=== PATIENT | female | born 1965 | race Caucasian/White ===

== ENCOUNTER 2019-06-07 14:44 | Inpatient (IN) | payer OTHER ==
[2019-06-07] MEDS ORDERED: SODIUM CHLORIDE 0.9% 500 ML INFUS.BAG IV ONE (15:06)
[2019-06-07] MEDS ORDERED: ONDANSETRON 4 MG/2 ML VIAL IVPB ONE (15:06)
[2019-06-07] MEDS ORDERED: ACETAMINOPHEN 500 MG TABLET (FP) PO ONE (15:07)
--- NOTE | 2019-06-07 15:07 | PDOC ---
Rapid Medical Evaluation Time Seen by Provider: 06/07/19 15:04 Medical Evaluation: 06/07/19 15:05 HPI: nausea and vomiting x 3 days PE: no gross deficits Orders: Labs, fluids, zofran Discharge Disposition - Diagnosis Nausea and vomiting - Referrals - Patient Instructions - Post Discharge Activity
[2019-06-07 15:09] VITALS: BMI 42.0
--- NOTE | 2019-06-07 16:15 | PDOC ---
History of Present Illness - General Chief Complaint: Nausea/Vomiting Stated Complaint: VOMITING/ABD PAIN Time Seen by Provider: 06/07/19 15:04 History Source: Patient Exam Limitations: No Limitations - History of Present Illness Initial Comments: 06/07/19 16:10 53 yo female no sig pmh presents to the ED with 3 days of F/C, bilious vomiting and right sided abdominal pain. Of note, pt has had 3 months of increased urinary frequency and increased thirst. Denies recent travel, sick contacts, CP , SOB, back pain, changes in bowel habits. Pt does not have PCP. Past History - Past Medical History Allergies/Adverse Reactions: Allergies Allergy/AdvReac Type Severity Reaction Status Date / Time No Known Allergies Allergy Verified 06/07/19 15:05 Home Medications: Ambulatory Orders NK [No Known Home Medication] 06/07/19 COPD: No - Suicide/Smoking/Psychosocial Hx Smoking History: Never smoked Review of Systems - Review of Systems Constitutional: Yes: See HPI HEENTM: Yes: See HPI Respiratory: Yes: See HPI Cardiac (ROS): Yes: See HPI ABD/GI: Yes: See HPI : Yes: See HPI Musculoskeletal: Yes: See HPI Integumentary: Yes: See HPI Neurological: Yes: See HPI *Physical Exam - Vital Signs Last Vital Signs Temp Pulse Resp BP Pulse Ox 101.5 F H 126 H 18 139/81 99 06/07/19 15:08 06/07/19 15:08 06/07/19 15:08 06/07/19 15:08 06/07/19 15:08 - Physical Exam General Appearance: Yes: Nourished, Appropriately Dressed. No: Apparent Distress HEENT: positive: EOMI Neck: positive: Supple. negative: Carotid bruit Respiratory/Chest: positive: Lungs Clear, Normal Breath Sounds. negative: Accessory Muscle Use, Crackles, Rales, Rhonchi, Wheezing Cardiovascular: positive: Regular Rhythm, Tachycardia. negative: Edema, JVD, Murmur Vascular Pulses: Dorsalis-Pedis (R): 4+, Doralis-Pedis (L): 4+ Gastrointestinal/Abdominal: positive: Flat, Soft. negative: Distended, Guarding , Rebound, Tenderness Musculoskeletal: positive: CVA Tenderness Extremity: positive: Normal Capillary Refill, Normal Inspection Integumentary: positive: Normal Color, Dry, Warm Neurologic: positive: Fully Oriented, Alert, Normal Mood/Affect, Normal Response ED Treatment Course - LABORATORY CBC & Chemistry Diagram: 06/09/19 09:50 06/09/19 09:50 Medical Decision Making - Medical Decision Making 06/07/19 21:42 53 yo female no sig pmh presents to the ED with 3 days of F/C, bilious vomiting and right sided abdominal pain. Of note, pt has had 3 months of increased urinary frequency and increased thirst. Denies recent travel, sick contacts, CP , SOB, back pain, changes in bowel habits. Pt does not have PCP. vitals show elevated temp and tachy sepsis work up ordered Pt has R flank pain Labs show elevated WBC, hyponatremia, elevated Cr (KEDAR vs chronic?) elevated BS in the 500s and UA positive for blood and WBCs RUQ US neg Ab/pel CT with PO contrast ED read shows dilated right kidney likely representing pyelo when taking into account labs and UA with R flank pain after 2L NS BS in the 400s Pt resting comfortably, ambulates without difficulty labs show improvement in HR and temp normal Case discussed with [employer] REPAIRER Katheryn, agrees to have pt admitted for pyelo and new onset DM *DC/Admit/Observation/Transfer Diagnosis at time of Disposition: Nausea and vomiting, Pyelonephritis - Discharge Dispostion Condition at time of disposition: Stable Decision to Admit order: Yes - Referrals - Patient Instructions - Post Discharge Activity
[2019-06-07] MEDS ORDERED: ONDANSETRON 4 MG/2 ML VIAL ONE (16:27)
[2019-06-07] MEDS ORDERED: ACETAMINOPHEN 1000 MG/100 ML VIAL (NON FORMULARY) IVPB ONE (16:30)
[2019-06-07] MEDS ORDERED: ACETAMINOPHEN INJECTION 100 ML IVPB ONE (16:43)
[2019-06-07 17:01] LABS: BASO % 0.4 % (0-2.0); HEMOGLOBIN 12.6 GM/dL (10.7-15.3); LYMPH % 5.3 % (8-40); MCH 28.2 pg (25.7-33.7); MCHC 32.4 g/dl (32.0-36.0); MEAN CELL VOLUME 86.8 fl (80-96); MEAN PLT VOLUME 9.5 fl (7.5-11.1); MONO % 6.2 % (3.8-10.2); NEUT % 88.1 % (42.8-82.8); PLATELET COUNT 187 K/MM3 (134-434); RBC 4.49 M/mm3 (3.60-5.2); RDW 13.4 % (11.6-15.6); WHITE BLOOD COUNT 25.4 K/mm3 (4.0-10.0)
[2019-06-07 17:36] LABS: ALBUMIN 2.8 g/dl (3.4-5.0); BILIRUBIN,TOTAL 0.9 mg/dL (0.2-1); BLOOD UREA NITROGEN 22.2 mg/dL (7-18); CALCIUM 8.9 mg/dL (8.5-10.1); CREATININE 1.8 mg/dL (0.55-1.3); POTASSIUM 4.3 mmol/L (3.5-5.1); TOT PROT 7.2 g/dl (6.4-8.2)
[2019-06-07] MEDS ORDERED: SODIUM CHLORIDE 1,000 ML IV STA ×2 (18:08)
[2019-06-07 18:25] LABS: PH,URINE 5.5 (5.0-8.0); URINE APPEARANCE CLEAR; URINE BILIRUBIN NEGATIVE (NEGATIVE); URINE COLOR YELLOW; URINE GLUCOSE (UA) 3+ (NEGATIVE); URINE KETONE 1+ (NEGATIVE); URINE LEUK ESTERASE TRACE (NEGATIVE); URINE NITRITE NEGATIVE (NEGATIVE); URINE PROTEIN 1+ (NEGATIVE); URINE UROBILINOGEN 0.2 mg/dL (0.2-1.0)
--- NOTE | 2019-06-07 18:38 | PDOC ---
Documentation entered by Lazaro High SCRIBE, acting as scribe for Eric Lama MD. Eric Lama MD: This documentation has been prepared by the Anila guadalupe Elijah, SCRIBE, under my direction and personally reviewed by me in its entirety. I confirm that the documentation accurately reflects all work, treatment, procedures, and medical decision making performed by me. Attending Attestation - Resident Resident Name: Luis F Looney - ED Attending Attestation I have performed the following: I have examined & evaluated the patient, The case was reviewed & discussed with the resident, I agree w/resident's findings & plan, Exceptions are as noted - HPI HPI: 06/07/19 16:26 Patient is a 53 year old female with no reported significant past medical history who presents to the ED with 3 days of fever, belly pain, nausea, and green bilious vomit. In addition, patient notes Urinary frequency for x1 month associated with urinary incontinence. Pt endorses polydipsia as well. Denies flank pain. Allergies: NKA - Physicial Exam PE: 06/07/19 16:26 GENERAL: Awake, alert, and fully oriented, in no acute distress. HEAD: No signs of trauma EYES: PERRLA, EOMI, sclera anicteric, conjunctiva clear ENT: Auricles normal inspection, hearing grossly normal, nares patent, oropharynx clear without exudates. Moist mucosa NECK: Nontender, no stepoffs, Normal ROM, supple, no lymphadenopathy, JVD, or masses LUNGS: Breath sounds equal, clear to auscultation bilaterally. No wheezes, and no crackles HEART: Regular rate and rhythm, normal S1 and S2, no murmurs, rubs or gallops ABDOMEN: + RUQ TTP, normoactive bowel sounds. No guarding, no rebound. No masses EXTREMITIES: Normal range of motion, no edema. No clubbing or cyanosis. No cords, erythema, or tenderness NEUROLOGICAL: Cranial nerves II through XII intact. 5/5 strength and sensation in all extremities, Normal speech, normal gait, normal cerebellar function SKIN: Warm, Dry, normal turgor, no rashes or lesions noted. - Medical Decision Making 06/07/19 18:12 53 F with abdominal pain, fevers, nausea, vomiting. Will evaluate for cholecystitis. - Labs - RUQ sono - CTAP - IVF, tylenol, zofran
[2019-06-07 19:34] LABS: ANISOCYTOSIS 1+; MACROCYTOSIS 1+; PLATELET ESTIMATE NORMAL
[2019-06-07 20:21] LABS: EPI CELLS 2.7 /HPF (0-5/HPF); URINE BACTERIA 1442.1 /hpf (NEGATIVE); URINE RBC 7.5 /hpf (0-4); URINE WBC 185.2 /hpf (0-5)
[2019-06-07] MEDS ORDERED: CEFTRIAXONE 1,000 MG in DEXTROSE 5%-WATER - 50 ML IVPB ONE (20:48)
[2019-06-07] MEDS ORDERED: CEFTRIAXONE 1 GM/50 ML BAG ONE (21:31)
--- NOTE | 2019-06-07 21:51 | HP ---
CHIEF COMPLAINT: Vomiting, Polyuria, Polydipsia, Fever, Chills, Flank Pain PCP: None HISTORY OF PRESENT ILLNESS: This is a 53 y/o woman with a PMHx of Renal Calculi (no surgical intervention). Who presents to the ED with bilious vomiting, subjective fever, chills, right flank pain x 3 days, polyuria, polydipsia x 1 month. Patient is Irish speaking , Group 47 line used #[id number]. Patient denies cough, dizziness, ORTA, SOB, CP, palpitations, diarrhea, constipation, dysuria. ER course was notable for: (1) CTAP- acute pyelonephritis (2) Abdominal US- fatty liver (3) WBC 25.4 (4) Glucose 525 (5) Na 125 Recent Travel: None PAST MEDICAL HISTORY: Renal Calculi PAST SURGICAL HISTORY: Denies Social History: Smoking: Denies Alcohol: Denies Drugs: Denies Family History: Mother: Diabetes Father: Alive and Well Brother- Diabetes Brothers x3 Alive and Well Allergies No Known Allergies Allergy (Verified 06/07/19 15:05) HOME MEDICATIONS: Home Medications Medication Instructions Recorded NK [No Known Home Medication] 06/07/19 REVIEW OF SYSTEMS CONSTITUTIONAL: fever, chills, loss of appetite, Absent: diaphoresis, generalized weakness, malaise, weight change HEENT: Absent: rhinorrhea, nasal congestion, throat pain, throat swelling, difficulty swallowing, mouth swelling, ear pain, eye pain, visual changes CARDIOVASCULAR: Absent: chest pain, syncope, palpitations, irregular heart rate, lightheadedness , peripheral edema RESPIRATORY: Absent: cough, shortness of breath, dyspnea with exertion, orthopnea, wheezing, stridor, hemoptysis GASTROINTESTINAL: abdominal pain, nausea, vomiting Absent: abdominal distension, diarrhea, constipation, melena, hematochezia GENITOURINARY: flank pain Absent: dysuria, frequency, urgency, hesitancy, hematuria, genital pain MUSCULOSKELETAL: Absent: myalgia, arthralgia, joint swelling, back pain, neck pain SKIN: Absent: rash, itching, pallor HEMATOLOGIC/IMMUNOLOGIC: Absent: easy bleeding, easy bruising, lymphadenopathy, frequent infections ENDOCRINE: polydipsia, polyuria Absent: unexplained weight gain, unexplained weight loss, heat intolerance, cold intolerance NEUROLOGIC: Absent: headache, focal weakness or paresthesias, dizziness, unsteady gait, seizure, mental status changes, bladder or bowel incontinence PSYCHIATRIC: Absent: anxiety, depression, suicidal or homicidal ideation, hallucinations. PHYSICAL EXAMINATION Vital Signs - 24 hr 06/07/19 15:08 Temperature 101.5 F H Pulse Rate 126 H Respiratory 18 Rate Blood Pressure 139/81 O2 Sat by Pulse 99 Oximetry (%) GENERAL: Awake, alert, and fully oriented, in mild distress. HEAD: Normal with no signs of trauma. EYES: Pupils equal, round and reactive to light, extraocular movements intact, sclera anicteric, conjunctiva clear. No lid lag. EARS, NOSE, THROAT: Ears normal, nares patent, oropharynx clear without exudates. Dry mucous membranes. NECK: Normal range of motion, supple without lymphadenopathy, JVD, or masses. LUNGS: Breath sounds equal, clear to auscultation bilaterally. No wheezes, and no crackles. No accessory muscle use. HEART: Regular rate and rhythm, normal S1 and S2 without murmur, rub or gallop. ABDOMEN: Obese, soft, tenderness RMQ, not distended, normoactive bowel sounds, no guarding, no rebound, no masses. No hepatomegaly or splenomegaly. MUSCULOSKELETAL: Normal range of motion at all joints. No bony deformities or tenderness. No CVA tenderness. UPPER EXTREMITIES: 2+ pulses, warm, well-perfused. No cyanosis. No clubbing. No peripheral edema. LOWER EXTREMITIES: 2+ pulses, warm, well-perfused. No calf tenderness. No peripheral edema. NEUROLOGICAL: Cranial nerves II-XII intact. Normal speech. Gait not observed. PSYCHIATRIC: Cooperative. Good eye contact. Appropriate mood and affect. SKIN: Warm, dry, normal turgor, no rashes or lesions noted, normal capillary refill. Laboratory Results - last 24 hr 06/07/19 06/07/19 06/07/19 16:39 16:39 16:39 WBC 25.4 H RBC 4.49 Hgb 12.6 Hct 39.0 MCV 86.8 MCH 28.2 MCHC 32.4 RDW 13.4 Plt Count 187 MPV 9.5 Absolute Neuts (auto) 22.4 H Neutrophils % 88.1 H Neutrophils % (Manual) 85.0 H Band Neutrophils % 3.0 Lymphocytes % 5.3 L Lymphocytes % (Manual) 7.0 L Monocytes % 6.2 Monocytes % (Manual) 5 Eosinophils % 0.0 Basophils % 0.4 Nucleated RBC % 0 Platelet Estimate Normal Platelet Comment No clumping noted Anisocytosis 1+ Macrocytosis 1+ Sodium 125 L Potassium 4.3 Chloride 89 L Carbon Dioxide 24 Anion Gap 13 BUN 22.2 H Creatinine 1.8 H Est GFR (CKD-EPI)AfAm 37.12 Est GFR (CKD-EPI)NonAf 32.02 Random Glucose 525 H* Calcium 8.9 Total Bilirubin 0.9 AST 16 ALT 33 Alkaline Phosphatase 103 Total Protein 7.2 Albumin 2.8 L Lipase 222 Serum , Qual Urine Color Yellow Urine Appearance Clear Urine pH 5.5 Ur Specific [place] 1.030 Urine Protein 1+ H Urine Glucose (UA) 3+ H Urine Ketones 1+ H Urine Blood 3+ H Urine Nitrite Negative Urine Bilirubin Negative Urine Urobilinogen 0.2 Ur Leukocyte Esterase Trace Urine WBC (Auto) 185.2 Urine RBC (Auto) 7.5 U Pathogenic Cast Auto None seen U Epithel Cells (Auto) 2.7 Urine Bacteria (Auto) 1442.1 06/07/19 16:39 WBC RBC Hgb Hct MCV MCH MCHC RDW Plt Count MPV Absolute Neuts (auto) Neutrophils % Neutrophils % (Manual) Band Neutrophils % Lymphocytes % Lymphocytes % (Manual) Monocytes % Monocytes % (Manual) Eosinophils % Basophils % Nucleated RBC % Platelet Estimate Platelet Comment Anisocytosis Macrocytosis Sodium Potassium Chloride Carbon Dioxide Anion Gap BUN Creatinine Est GFR (CKD-EPI)AfAm Est GFR (CKD-EPI)NonAf Random Glucose Calcium Total Bilirubin AST ALT Alkaline Phosphatase Total Protein Albumin Lipase Serum , Qual Negative Urine Color Urine Appearance Urine pH Ur Specific [place] Urine Protein Urine Glucose (UA) Urine Ketones Urine Blood Urine Nitrite Urine Bilirubin Urine Urobilinogen Ur Leukocyte Esterase Urine WBC (Auto) Urine RBC (Auto) U Pathogenic Cast Auto U Epithel Cells (Auto) Urine Bacteria (Auto) ASSESSMENT/PLAN: This is a 53 y/o woman with a PMHx of Renal Calculi. Admitted for Acute Pyelonephritis, New Onset Diabetes, Hyponatremia, KEDAR for further evaluation of their emergent condition. Plan: See Problem List FEN NS@125ml/hr Replete lytes prn NPO DVT ppx OOB SCDs Hold ACs secondary to Hematuria Code Status: Full Code Dispo: Requires Inpatient Care Problem List - Problem (1) Pyelonephritis Assessment/Plan: UA- +3 Blood, +3 Glucose, 185 WBC, 1442 Bacteria Blood Cultures-pending Urine Culture-pending CTAP- Acute Pyelonephritis WBC 25.4 with L- Shift T Max 101.5 Lactic acid-pending Ceftriaxone given in ED, will continue Appreciate Urology consult Continue IVF Tylenol prn Monitor CBC, BMP Monitor vitals Code(s): N12 - TUBULO-INTERSTITIAL NEPHRITIS, NOT SPCF ACUTE OR CHRONIC (2) Sepsis Assessment/Plan: Sepsis Criteria MET IV: T max 101.5, WBC 25.4, P 126, LA 2.9 qSOFA Code(s): A41.9 - SEPSIS, UNSPECIFIED ORGANISM (3) New onset type 2 diabetes mellitus Assessment/Plan: Patient reports polydipsia, polyuria x 1 month and has familial hx DM Glucose 525 NS bolus x3 given in ED Repeat BGM 459 Ordered Novolog SQ BGMs ISS Appreciate Endocrinology consult - HgbA1c in am Monitor BMP Code(s): E11.9 - TYPE 2 DIABETES MELLITUS WITHOUT COMPLICATIONS (4) Hyponatremia Assessment/Plan: Likely secondary to Hyperglycemia secondary to New Onset Diabetes Serial BMPs Given NS boluses in ED Consider Nephrology consult if condition worsens Serum Osmo, Urine Osmo, Spot Sodium-pending Corrected Na 132mEq/L Code(s): E87.1 - HYPO-OSMOLALITY AND HYPONATREMIA (5) Nausea and vomiting Code(s): R11.2 - NAUSEA WITH VOMITING, UNSPECIFIED (6) KEDAR (acute kidney injury) Assessment/Plan: Likely secondary to Dehydration NS bolus given in ED Monitor BMP Avoid nephrotoxic drugs Code(s): N17.9 - ACUTE KIDNEY FAILURE, UNSPECIFIED (7) UTI (urinary tract infection) Assessment/Plan: UA- +3 blood, +3 glucose, 185 WBC, 1442 Bacteria Urine Culture-pending Ceftriaxone started in ED will continue Monitor vitals Monitor CBC Code(s): N39.0 - URINARY TRACT INFECTION, SITE NOT SPECIFIED Visit type - Emergency Visit Emergency Visit: Yes ED Registration Date: 06/07/19 Care time: The patient presented to the Emergency Department on the above date and was hospitalized for further evaluation of their emergent condition. - New Patient This patient is new to me today: Yes Date on this admission: 06/07/19 - Critical Care Critical Care patient: No
[2019-06-07] MEDS: SODIUM CHLORIDE 1,000 ML IV SCH (22:25)
[2019-06-07] MEDS ORDERED: INSULIN (NOVOLOG) ASPART 100 UNITS/ML 10ML VIAL SQ ONE (23:15)
[2019-06-08] MEDS ORDERED: FAMOTIDINE 20 MG/50 ML IVPB 20 MG/50 ML MG IVPB ONE (00:01)
[2019-06-08] MEDS ORDERED: ONDANSETRON 4 MG/2 ML VIAL IVPUSH PRN (00:01)
[2019-06-08] MEDS ORDERED: ACETAMINOPHEN 1000 MG/100 ML VIAL (NON FORMULARY) IVPB PRN (00:02)
[2019-06-08] MEDS ORDERED: INSULIN REGULAR HUMAN 100 UNITS/ML *VIAL ONE (00:13)
[2019-06-08 01:15] LABS: EPI CELLS 1.8 /HPF (0-5/HPF); HYALINE CASTS 3 /lpf (0-8); PH,URINE 5.5 (5.0-8.0); URINE APPEARANCE CLOUDY; URINE BACTERIA 544.5 /hpf (NEGATIVE); URINE BILIRUBIN NEGATIVE (NEGATIVE); URINE COLOR YELLOW; URINE GLUCOSE (UA) 3+ (NEGATIVE); URINE KETONE 2+ (NEGATIVE); URINE LEUK ESTERASE 1+ (NEGATIVE); URINE NITRITE NEGATIVE (NEGATIVE); URINE PROTEIN 1+ (NEGATIVE); URINE RBC 5 /hpf (0-4); URINE UROBILINOGEN 0.2 mg/dL (0.2-1.0); URINE WBC 67 /hpf (0-5)
[2019-06-08 01:54] LABS: CALCIUM 8.4 mg/dL (8.5-10.1); CREATININE 1.5 mg/dL (0.55-1.3); POTASSIUM 4.2 mmol/L (3.5-5.1)
[2019-06-08] MEDS ORDERED: INSULIN (NOVOLOG) ASPART 100 UNITS/ML 10ML VIAL SQ ONE (02:24)
[2019-06-08] MEDS ORDERED: SODIUM CHLORIDE 500 ML IV STA (02:25)
[2019-06-08] MEDS: SODIUM CHLORIDE 1,000 ML IV SCH ×3 (04:33→21:08)
[2019-06-08] MEDS: INSULIN SLIDING SCALE (NOVOLOG) 1 VIAL SQ SCH ×5 (06:28→21:13)
[2019-06-08] MEDS ORDERED: INSULIN (NOVOLOG) ASPART 100 UNITS/ML 10ML VIAL ONE ×2 (06:58→17:07)
[2019-06-08 07:49] LABS: BASO % 0.4 % (0-2.0); EOS % 0.1 % (0-4.5); HEMATOCRIT 34.9 % (32.4-45.2); HEMOGLOBIN 11.5 GM/dL (10.7-15.3); LYMPH % 5.4 % (8-40); MCH 28.5 pg (25.7-33.7); MCHC 33.1 g/dl (32.0-36.0); MEAN CELL VOLUME 86.2 fl (80-96); MEAN PLT VOLUME 9.7 fl (7.5-11.1); MONO % 7.1 % (3.8-10.2); PLATELET COUNT 174 K/MM3 (134-434); RBC 4.05 M/mm3 (3.60-5.2); RDW 13.6 % (11.6-15.6); WHITE BLOOD COUNT 20.2 K/mm3 (4.0-10.0)
[2019-06-08 08:00] LABS: BLOOD UREA NITROGEN 19.2 mg/dL (7-18); CALCIUM 8.2 mg/dL (8.5-10.1); CREATININE 1.3 mg/dL (0.55-1.3)
--- NOTE | 2019-06-08 08:09 | CON.GU ---
Consult Consult Specialty:: urology Reason for Consultation:: right pyelonephritis - History of Present Illness History of Present Illness: Patient is a 53 year old femal with history of right flank pain and fever to 102. Patient denies gross hematuria, nausea, vomiting, or change in urinary symptoms. Patient has a history of renal stones. - History Source History Provided By: Patient Limitations to Obtaining History: No Limitations - Smoking History Smoking history: Never smoked Home Medications - Allergies Allergies/Adverse Reactions: Allergies Allergy/AdvReac Type Severity Reaction Status Date / Time No Known Allergies Allergy Verified 06/07/19 15:05 - Home Medications Home Medications: Ambulatory Orders NK [No Known Home Medication] 06/07/19 Physical Exam- Vital Signs: Vital Signs Temperature 99.2 F 06/08/19 06:00 Pulse Rate 106 H 06/08/19 04:45 Respiratory Rate 20 06/08/19 04:45 Blood Pressure 142/88 06/08/19 04:45 O2 Sat by Pulse Oximetry (%) 98 06/08/19 04:58 Constitutional: Yes: Well Nourished, No Distress, Calm Eyes: Yes: WNL, Conjunctiva Clear, EOM Intact HENT: Yes: WNL, Atraumatic, Normocephalic Neck: Yes: WNL, Supple, Trachea Midline Cardiovascular: Yes: WNL, Regular Rate and Rhythm Respiratory: Yes: WNL, Regular, CTA Bilaterally Gastrointestinal: Yes: WNL, Normal Bowel Sounds, Soft Renal/: Yes: CVA Tenderness - Right Kidneys: Yes: FLank Pain Right Pelvis: Yes: WNL, Bladder Non Palpable External Genitalia: Yes: WNL Labs: CBC, BMP 06/08/19 06:39 Imaging - Results Cat Scan: Report Reviewed Ultrasound: Report Reviewed (no hydronephrosis or stone) Assessment/Plan impression right pyelonephritis plan iv antibiotics pending culture will follow-up as outpatient
--- NOTE | 2019-06-08 09:11 | CONSULT ---
Consult Consult Specialty:: Endocrinology Referred by:: Katheryn Grove NP Reason for Consultation:: New onset DM - History of Present Illness Chief Complaint: Nausea vomiting History of Present Illness: This is a 53 y/o woman with a PMHx of Renal Calculi (no surgical intervention) who presents to the ED with bilious vomiting, subjective fever, chills, right flank pain x 3 days, polyuria, polydipsia x 1 month. Wt loss of around 10 lbs and blurred vision in last 4 months. In ER WBC was 25.4 and Glucose 0f 525. Pt referred for management of new onset DM. - History Source History Provided By: Patient, Medical Record - Smoking History Smoking history: Never smoked Home Medications - Allergies Allergies/Adverse Reactions: Allergies Allergy/AdvReac Type Severity Reaction Status Date / Time No Known Allergies Allergy Verified 06/07/19 15:05 - Home Medications Home Medications: Ambulatory Orders NK [No Known Home Medication] 06/07/19 Family Disease History - Family Disease History Family Disease History: Diabetes: Mother Review of Systems - Review of Systems Constitutional: reports: Malaise Eyes: reports: No Symptoms HENT: reports: No Symptoms Neck: reports: No Symptoms Cardiovascular: reports: No Symptoms Respiratory: reports: No Symptoms Gastrointestinal: reports: No Symptoms Genitourinary: reports: No Symptoms Musculoskeletal: reports: No Symptoms Neurological: reports: No Symptoms Endocrine: reports: No Symptoms Physical Exam Vital Signs: Vital Signs Temperature 99.2 F 06/08/19 06:00 Pulse Rate 106 H 06/08/19 04:45 Respiratory Rate 20 06/08/19 04:45 Blood Pressure 142/88 06/08/19 04:45 O2 Sat by Pulse Oximetry (%) 98 06/08/19 04:58 Constitutional: Yes: No Distress, Calm Eyes: Yes: Conjunctiva Clear, EOM Intact HENT: Yes: Atraumatic, Normocephalic Neck: Yes: Supple, Trachea Midline Cardiovascular: Yes: Regular Rate and Rhythm Respiratory: Yes: Regular, CTA Bilaterally Gastrointestinal: Yes: Normal Bowel Sounds, Soft Extremities: Yes: WNL Edema: No Neurological: Yes: Alert, Oriented Labs: CBC, BMP 06/08/19 06:39 06/08/19 06:39 Assessment/Plan AP: UTI Pyelonephritis New Onset DM: A1c 14.6 KEDAR: resolving BGM Q ACHS Nutrition consult Levermir 10 BID Novolog SS coverage Will f/u
[2019-06-08] MEDS ORDERED: CEFTRIAXONE 1 GM in DEXTROSE 5%-WATER - 50 ML IVPB SCH (10:00)
[2019-06-08] MEDS ORDERED: DEXTROSE 5%-WATER - 50 ML IVPB ONE ×3 (10:04→18:24)
[2019-06-08] MEDS ORDERED: cefTRIAXone SODIUM 1 GM VIAL ONE (10:04)
[2019-06-08 10:44] LABS: ANISOCYTOSIS 0; MACROCYTOSIS 0; PLATELET ESTIMATE NORMAL
[2019-06-08] MEDS ORDERED: KETOROLAC TROMETHAMINE 10 MG TABLET PO PRN (11:29)
--- NOTE | 2019-06-08 11:58 | PN ---
Progress Note, Physician Chief Complaint: patient reports right flank pain and weakness. denies chest pain or shortness of breath. noted to be tachycardic on exam. EKG ordered to further evaluate. History of Present Illness: Patient is a 53 year old female with a significant past medical history of renal calculi (no surgical intervention). Who presents to the ED with bilious vomiting, subjective fever, chills, right flank pain x 3 days, polyuria, polydipsia x 1 month. Patient denies cough, dizziness, chest pain or shortness of breath. She reports feeling weak. On admission, a CTAP showed acute phyelonephritis, and an abdominal ultrasound showed fatty liver. Labs on admission showed WBC 25.4, glucose 525, hyponatremia. She was noted to have acute onset diabetes mellitus and automotive exhaust emissions technician has been consulted. - Current Medication List Current Medications: Active Medications Acetaminophen (Ofirmev Injection -) 1,000 mg IVPB Q6H PRN PRN Reason: PAIN OR FEVER Last Admin: 06/08/19 04:33 Dose: 1,000 mg Ceftriaxone Sodium 1 gm/ (Dextrose) 50 mls @ 100 mls/hr IVPB DAILY ZOILA; Protocol Last Admin: 06/08/19 10:12 Dose: 100 mls/hr Sodium Chloride (Normal Saline -) 1,000 mls @ 125 mls/hr IV ASDIR ZOILA Last Admin: 06/08/19 04:33 Dose: 125 mls/hr Insulin Aspart (Novolog Vial Sliding Scale -) 1 vial SQ ACHS ZOILA; Protocol Last Admin: 06/08/19 11:55 Dose: 14 units Ketorolac Tromethamine (Toradol) 10 mg PO Q6HPO PRN PRN Reason: PAIN LEVEL 7 - 10 Stop: 06/13/19 11:59 Ondansetron HCl (Zofran Injection) 4 mg IVPUSH Q6H PRN PRN Reason: NAUSEA AND/OR VOMITING - Objective Vital Signs: Vital Signs Temperature 98.5 F 06/08/19 09:00 Pulse Rate 99 H 06/08/19 09:00 Respiratory Rate 20 06/08/19 09:00 Blood Pressure 139/76 06/08/19 09:00 O2 Sat by Pulse Oximetry (%) 98 06/08/19 04:58 Constitutional: Yes: No Distress, Calm Eyes: Yes: WNL HENT: Yes: WNL Neck: Yes: WNL Cardiovascular: Yes: Tachycardia Respiratory: Yes: CTA Bilaterally Gastrointestinal: Yes: Normal Bowel Sounds, Abdomen, Obese ...Rectal Exam: Yes: Deferred Genitourinary: Yes: WNL Breast(s): Yes: WNL Musculoskeletal: Yes: WNL Extremities: Yes: WNL Integumentary: Yes: WNL Neurological: Yes: Alert, Oriented Psychiatric: Yes: WNL Labs: CBC, BMP 06/08/19 06:39 06/08/19 06:39 - ....Imaging Cat Scan: Image Reviewed EKG: Image Reviewed Problem List - Problems (1) Sepsis Assessment/Plan: patient presents with leukocytosis, fever, tachycardia and kedar. CTAP shows pyelonephritis blood cultures growing gram negative bacilli, pending final ID of bacteria ceftriaxone discontinued by ID and patient started on Zosyn Monitor fever curve, tmax 102F Monitor vitals, labs. continue IVF. Code(s): A41.9 - SEPSIS, UNSPECIFIED ORGANISM (2) KEDAR (acute kidney injury) Assessment/Plan: KEDAR improving, continue hydration Code(s): N17.9 - ACUTE KIDNEY FAILURE, UNSPECIFIED (3) Hyponatremia Assessment/Plan: improved with IVF, monitor daily Code(s): E87.1 - HYPO-OSMOLALITY AND HYPONATREMIA (4) Nausea and vomiting Assessment/Plan: resolved. on zofran. Code(s): R11.2 - NAUSEA WITH VOMITING, UNSPECIFIED (5) New onset type 2 diabetes mellitus Assessment/Plan: New onset DM. BGMs over 400 today. SS tightened further. hmga1c 14.6 Will start on long acting tonight monitor bgms with goal of maintaining fasting blood sugars <180 endocrinolgist following Code(s): E11.9 - TYPE 2 DIABETES MELLITUS WITHOUT COMPLICATIONS (6) Pyelonephritis Assessment/Plan: Seen by urology monitor intake and output toradol for pain Code(s): N12 - TUBULO-INTERSTITIAL NEPHRITIS, NOT SPCF ACUTE OR CHRONIC (7) UTI (urinary tract infection) Code(s): N39.0 - URINARY TRACT INFECTION, SITE NOT SPECIFIED (8) Sinus tachycardia by electrocardiogram Assessment/Plan: EKG 06/08/2019 shows left atrial enlargement, sinus tachyardia 116s will order echo. Code(s): R00.0 - TACHYCARDIA, UNSPECIFIED (9) Prophylactic measure Assessment/Plan: fen IVF NS @ 125cc/hr monitor electrolytes low salt diet. prophy heparin full code Code(s): Z29.9 - ENCOUNTER FOR PROPHYLACTIC MEASURES, UNSPECIFIED Visit type - Emergency Visit Emergency Visit: Yes ED Registration Date: 06/07/19 Care time: The patient presented to the Emergency Department on the above date and was hospitalized for further evaluation of their emergent condition. - New Patient This patient is new to me today: Yes Date on this admission: 06/08/19 - Critical Care Critical Care patient: No - Discharge Referral Referred to [facility] Med P.C.: No
--- NOTE | 2019-06-08 12:05 | CON.ID ---
Consult Consult Specialty:: infectious diseases Referred by:: Gwendolyn Reason for Consultation:: bacteremia,uti - History of Present Illness Chief Complaint: weakness,fever History of Present Illness: 53 year old female with no reported significant past medical history who presents to the ED with 3 days of fever, belly pain, nausea, and green bilious vomit. In addition, patient notes Urinary frequency for x1 month associated with urinary incontinence. Pt endorses polydipsia as well. Denies flank pain. - History Source History Provided By: Patient, Medical Record Limitations to Obtaining History: Language Barrier - Smoking History Smoking history: Never smoked Home Medications - Allergies Allergies/Adverse Reactions: Allergies Allergy/AdvReac Type Severity Reaction Status Date / Time No Known Allergies Allergy Verified 06/07/19 15:05 - Home Medications Home Medications: Ambulatory Orders NK [No Known Home Medication] 06/07/19 Family Disease History - Family Disease History Family Disease History: Diabetes: Mother Review of Systems - Review of Systems Constitutional: reports: Fever Eyes: reports: No Symptoms HENT: reports: No Symptoms Neck: reports: No Symptoms Cardiovascular: reports: No Symptoms Respiratory: reports: No Symptoms Gastrointestinal: reports: No Symptoms Genitourinary: reports: Dysuria Musculoskeletal: reports: No Symptoms Integumentary: reports: No Symptoms Neurological: reports: No Symptoms Endocrine: reports: No Symptoms Hematology/Lymphatic: reports: No Symptoms Psychiatric: reports: No Symptoms Physical Exam Vital Signs: Vital Signs Temperature 98.5 F 06/08/19 09:00 Pulse Rate 99 H 06/08/19 09:00 Respiratory Rate 20 06/08/19 09:00 Blood Pressure 139/76 06/08/19 09:00 O2 Sat by Pulse Oximetry (%) 98 06/08/19 04:58 Constitutional: Yes: No Distress, Calm, Obese Cardiovascular: Yes: Regular Rate and Rhythm Respiratory: Yes: Regular, CTA Bilaterally Gastrointestinal: Yes: Normal Bowel Sounds, Soft Musculoskeletal: Yes: WNL Extremities: Yes: WNL Neurological: Yes: Alert, Oriented Psychiatric: Yes: Alert, Oriented Labs: CBC, BMP 06/08/19 06:39 06/08/19 06:39 Imaging - Results Chest X-ray: Report Reviewed, Image Reviewed Cat Scan: Report Reviewed, Image Reviewed Assessment/Plan [facility] List - Problem (1) Pyelonephritis Code(s): N12 - TUBULO-INTERSTITIAL NEPHRITIS, NOT SPCF ACUTE OR CHRONIC (2) Sepsis Code(s): A41.9 - SEPSIS, UNSPECIFIED ORGANISM (3) New onset type 2 diabetes mellitus Code(s): E11.9 - TYPE 2 DIABETES MELLITUS WITHOUT COMPLICATIONS (4) Hyponatremia Code(s): E87.1 - HYPO-OSMOLALITY AND HYPONATREMIA (5) Nausea and vomiting Code(s): R11.2 - NAUSEA WITH VOMITING, UNSPECIFIED (6) KEDAR (acute kidney injury) Code(s): N17.9 - ACUTE KIDNEY FAILURE, UNSPECIFIED (7) UTI (urinary tract infection) Code(s): N39.0 - URINARY TRACT INFECTION, SITE NOT SPECIFIED plan will start patient on zosyn hydration rest as per the team
[2019-06-08] MEDS ORDERED: PIPERACILLIN/TAZOBACTAM 3.375 GM VIAL IVPB ONE ×2 (12:52→18:24)
[2019-06-08] MEDS: PIPERACILLIN/TAZOB 3.375 GM 3.375 GM in DEXTROSE 5%-WATER - 50 ML IVPB SCH ×2 (12:54→18:25)
[2019-06-08] MEDS ORDERED: ACETAMINOPHEN 325 MG TABLET (FP) PO PRN (14:55)
--- NOTE | 2019-06-08 17:09 | EKG ---
Test Reason : Blood Pressure : / mmHG Vent. Rate : 114 BPM Atrial Rate : 114 BPM P-R Int : 128 ms QRS Dur : 096 ms QT Int : 326 ms P-R-T Axes : 031 072 002 degrees QTc Int : 449 ms SINUS TACHYCARDIA POSSIBLE LEFT ATRIAL ENLARGEMENT NONSPECIFIC T WAVE ABNORMALITY ABNORMAL ECG NO PREVIOUS ECGS AVAILABLE Confirmed by MEI TURNER, GRUPO ([id number]) on 06/08/2019 5:09:30 PM Referred By: Confirmed By:GRUPO HURLEY MD
[2019-06-08] MEDS: INSULIN (LEVEMIR) 100 UNITS/ML UNITS SQ SCH (21:13)
[2019-06-09] MEDS ORDERED: DEXTROSE 5%-WATER - 50 ML IVPB ONE ×3 (02:05→17:28)
[2019-06-09] MEDS ORDERED: PIPERACILLIN/TAZOBACTAM 3.375 GM VIAL IVPB ONE ×3 (02:05→17:28)
[2019-06-09] MEDS: PIPERACILLIN/TAZOB 3.375 GM 3.375 GM in DEXTROSE 5%-WATER - 50 ML IVPB SCH ×3 (02:08→17:32)
[2019-06-09] MEDS: INSULIN SLIDING SCALE (NOVOLOG) 1 VIAL SQ SCH ×4 (06:10→22:27)
[2019-06-09] MEDS: INSULIN (LEVEMIR) 100 UNITS/ML UNITS SQ SCH ×2 (06:11→22:27)
[2019-06-09] MEDS: SODIUM CHLORIDE 1,000 ML IV SCH ×2 (06:11→17:36)
--- NOTE | 2019-06-09 08:54 | PN ---
Progress Note (short form) - Note Progress Note: Feels good No dysuria Vital Signs Period Temp Pulse Resp BP Sys/Arnold Pulse Ox Last 24 Hr 98.2 F-100.2 F 88-116 20-20 119-153/72-86 97 PE: AOx3 Neck: Supple, Lunsg: CTA CVS: S1S2 Abd: Benign EXt: No edema CMP Sodium 137 mmol/L (136-145) 06/08/19 06:39 Potassium 4.0 mmol/L (3.5-5.1) 06/08/19 06:39 Chloride 103 mmol/L (98-107) 06/08/19 06:39 Carbon Dioxide 25 mmol/L (21-32) 06/08/19 06:39 Anion Gap 9 MMOL/L (8-16) 06/08/19 06:39 BUN 19.2 mg/dL (7-18) H 06/08/19 06:39 Creatinine 1.3 mg/dL (0.55-1.3) 06/08/19 06:39 Est GFR (CKD-EPI)AfAm 55.01 06/08/19 06:39 Est GFR (CKD-EPI)NonAf 47.46 06/08/19 06:39 POC Glucometer 212 UNITS (80-120) 06/09/19 06:09 Random Glucose 297 mg/dL (74-106) H 06/08/19 06:39 Hemoglobin A1c % 14.6 % (4.2-6.3) H 06/08/19 06:39 Serum Osmolality 297 mosm/kg (278-305) 06/08/19 01:05 Lactic Acid 1.3 mmol/L (0.4-2.0) 06/08/19 06:39 Calcium 8.2 mg/dL (8.5-10.1) L 06/08/19 06:39 Total Bilirubin 0.9 mg/dL (0.2-1) 06/07/19 16:39 AST 16 U/L (15-37) 06/07/19 16:39 ALT 33 U/L (13-61) 06/07/19 16:39 Alkaline Phosphatase 103 U/L (45-117) 06/07/19 16:39 Total Protein 7.2 g/dl (6.4-8.2) 06/07/19 16:39 Albumin 2.8 g/dl (3.4-5.0) L 06/07/19 16:39 Lipase 222 U/L (73-393) 06/07/19 16:39 Serum , Qual Negative 06/07/19 16:39 Current Medications Generic Name Dose Route Start Last Admin Trade Name Freq PRN Reason Stop Dose Admin Acetaminophen 650 mg 06/08/19 14:55 Tylenol - PO Q6H PRN FEVER Sodium Chloride 1,000 mls @ 125 mls/hr 06/07/19 22:15 06/09/19 06:11 Normal Saline - IV 125 mls/hr ASDIR ZOILA Administration Piperacillin Sod/Tazobactam 50 mls @ 100 mls/hr 06/08/19 12:45 06/09/19 02:08 Sod 3.375 gm/ Dextrose IVPB 100 mls/hr Q8H-IV ZOILA Administration Protocol Insulin Aspart 1 vial 06/08/19 22:00 06/08/19 21:13 Novolog Vial Sliding Scale - SQ 6 units HS ZOILA Administration Protocol Insulin Aspart 1 vial 06/09/19 07:00 06/09/19 06:10 Novolog Vial Sliding Scale - SQ 4 units TIDAC ZOILA Administration Protocol Insulin Detemir 10 units 06/08/19 22:00 06/09/19 06:11 Levemir Vial SQ 10 units BID@0700,2200 ZOILA Administration Ketorolac Tromethamine 10 mg 06/08/19 11:29 06/08/19 16:21 Toradol PO 06/13/19 11:59 10 mg Q6HPO PRN Administration PAIN LEVEL 7 - 10 Ondansetron HCl 4 mg 06/08/19 00:01 Zofran Injection IVPUSH Q6H PRN NAUSEA AND/OR VOMITING AP: UTI Pyelonephritis New Onset DM: A1c 14.6 KEDAR: resolving BGM Q ACHS Nutrition consult Levermir 10 BID Increase Novolog SS coverage Will f/u
--- NOTE | 2019-06-09 10:36 | PN ---
Progress Note, Physician History of Present Illness: stable no new issues spiked a fever - Current Medication List Current Medications: Active Medications Acetaminophen (Tylenol -) 650 mg PO Q6H PRN PRN Reason: FEVER Sodium Chloride (Normal Saline -) 1,000 mls @ 125 mls/hr IV ASDIR ZOILA Last Admin: 06/09/19 06:11 Dose: 125 mls/hr Piperacillin Sod/Tazobactam (Sod 3.375 gm/ Dextrose) 50 mls @ 100 mls/hr IVPB Q8H-IV ZOILA; Protocol Last Admin: 06/09/19 09:19 Dose: 100 mls/hr Insulin Aspart (Novolog Vial Sliding Scale -) 1 vial SQ HS [facility]; Protocol Last Admin: 06/08/19 21:13 Dose: 6 units Insulin Aspart (Novolog Vial Sliding Scale -) 1 vial SQ TIDAC [facility]; Protocol Last Admin: 06/09/19 06:10 Dose: 4 units Insulin Detemir (Levemir Vial) 10 units SQ BID@0700,2200 ZOILA Last Admin: 06/09/19 06:11 Dose: 10 units Ketorolac Tromethamine (Toradol) 10 mg PO Q6HPO PRN PRN Reason: PAIN LEVEL 7 - 10 Stop: 06/13/19 11:59 Last Admin: 06/08/19 16:21 Dose: 10 mg Ondansetron HCl (Zofran Injection) 4 mg IVPUSH Q6H PRN PRN Reason: NAUSEA AND/OR VOMITING - Objective Vital Signs: Vital Signs Temperature 98.7 F 06/09/19 09:18 Pulse Rate 101 H 06/09/19 09:18 Respiratory Rate 19 06/09/19 09:18 Blood Pressure 133/71 06/09/19 09:18 O2 Sat by Pulse Oximetry (%) 97 06/08/19 21:00 Constitutional: Yes: No Distress, Calm Cardiovascular: Yes: Regular Rate and Rhythm Respiratory: Yes: Regular, CTA Bilaterally Gastrointestinal: Yes: Normal Bowel Sounds, Soft Musculoskeletal: Yes: WNL Extremities: Yes: WNL Neurological: Yes: Alert, Oriented Psychiatric: Yes: Alert, Oriented Labs: CBC, BMP 06/08/19 06:39 06/08/19 06:39 Assessment/Plan roblem List - Problem (1) Pyelonephritis Code(s): N12 - TUBULO-INTERSTITIAL NEPHRITIS, NOT SPCF ACUTE OR CHRONIC (2) Sepsis Code(s): A41.9 - SEPSIS, UNSPECIFIED ORGANISM (3) New onset type 2 diabetes mellitus Code(s): E11.9 - TYPE 2 DIABETES MELLITUS WITHOUT COMPLICATIONS (4) Hyponatremia Code(s): E87.1 - HYPO-OSMOLALITY AND HYPONATREMIA (5) Nausea and vomiting Code(s): R11.2 - NAUSEA WITH VOMITING, UNSPECIFIED (6) KEDAR (acute kidney injury) Code(s): N17.9 - ACUTE KIDNEY FAILURE, UNSPECIFIED (7) UTI (urinary tract infection) Code(s): N39.0 - URINARY TRACT INFECTION, SITE NOT SPECIFIED plan continue abx hydration rest as per the team monitor fevers
[2019-06-09 10:59] LABS: WHITE BLOOD COUNT 15.5 K/mm3 (4.0-10.0)
[2019-06-09 11:08] LABS: BASO % 0.4 % (0-2.0); HEMATOCRIT 33.2 % (32.4-45.2); HEMOGLOBIN 10.8 GM/dL (10.7-15.3); LYMPH % 9.1 % (8-40); MCH 28.1 pg (25.7-33.7); MCHC 32.6 g/dl (32.0-36.0); MEAN CELL VOLUME 86.1 fl (80-96); MEAN PLT VOLUME 10.1 fl (7.5-11.1); MONO % 7.5 % (3.8-10.2); PLATELET COUNT 180 K/MM3 (134-434); RBC 3.86 M/mm3 (3.60-5.2); RDW 13.4 % (11.6-15.6)
[2019-06-09 11:24] LABS: BILIRUBIN,TOTAL 0.5 mg/dL (0.2-1); CREATININE 1.2 mg/dL (0.55-1.3); MAGNESIUM 2.1 mg/dL (1.8-2.4); POTASSIUM 3.8 mmol/L (3.5-5.1); TOT PROT 5.8 g/dl (6.4-8.2)
--- NOTE | 2019-06-09 12:48 | PN ---
Progress Note, Physician Chief Complaint: patient reports right flank pain and weakness. denies chest pain or shortness of breath. echo reviewed, shows mild basal septal hypertrophy History of Present Illness: Patient is a 53 year old female with a significant past medical history of renal calculi (no surgical intervention). Who presents to the ED with bilious vomiting, subjective fever, chills, right flank pain x 3 days, polyuria, polydipsia x 1 month. Patient denies cough, dizziness, chest pain or shortness of breath. She reports feeling weak. On admission, a CTAP showed acute phyelonephritis, and an abdominal ultrasound showed fatty liver. Labs on admission showed WBC 25.4, glucose 525, hyponatremia. She was noted to have acute onset diabetes mellitus and solutions development analyst has been consulted. - Current Medication List Current Medications: Active Medications Acetaminophen (Tylenol -) 650 mg PO Q6H PRN PRN Reason: FEVER Sodium Chloride (Normal Saline -) 1,000 mls @ 125 mls/hr IV ASDIR [facility] Last Admin: 06/09/19 06:11 Dose: 125 mls/hr Piperacillin Sod/Tazobactam (Sod 3.375 gm/ Dextrose) 50 mls @ 100 mls/hr IVPB Q8H-IV ZOIL[facility]; Protocol Last Admin: 06/09/19 09:19 Dose: 100 mls/hr Insulin Aspart (Novolog Vial Sliding Scale -) 1 vial SQ HS [facility]; Protocol Last Admin: 06/08/19 21:13 Dose: 6 units Insulin Aspart (Novolog Vial Sliding Scale -) 1 vial SQ TIDAC [facility]; Protocol Last Admin: 06/09/19 11:49 Dose: 8 units Insulin Detemir (Levemir Vial) 15 units SQ BID@0700,2200 ZOILA Ketorolac Tromethamine (Toradol) 10 mg PO Q6HPO PRN PRN Reason: PAIN LEVEL 7 - 10 Stop: 06/13/19 11:59 Last Admin: 06/08/19 16:21 Dose: 10 mg Ondansetron HCl (Zofran Injection) 4 mg IVPUSH Q6H PRN PRN Reason: NAUSEA AND/OR VOMITING - Objective Vital Signs: Vital Signs Temperature 98.7 F 06/09/19 09:18 Pulse Rate 101 H 06/09/19 09:18 Respiratory Rate 19 06/09/19 09:18 Blood Pressure 133/71 06/09/19 09:18 O2 Sat by Pulse Oximetry (%) 97 06/09/19 09:00 Constitutional: Yes: Well Nourished, No Distress, Calm Eyes: Yes: WNL HENT: Yes: Atraumatic Neck: Yes: WNL Cardiovascular: Yes: Regular Rate and Rhythm Respiratory: Yes: Regular, CTA Bilaterally Gastrointestinal: Yes: Normal Bowel Sounds ...Rectal Exam: Yes: Deferred Genitourinary: Yes: WNL Edema: No Integumentary: Yes: WNL Labs: CBC, BMP 06/09/19 09:50 06/09/19 09:50 Problem List - Problems (1) Bacteremia Assessment/Plan: + blood cultures and urine cultures growing lactose fermenting gram neg becky. awaiting sensititivies on Zosyn per ID Code(s): R78.81 - BACTEREMIA (2) Sepsis Assessment/Plan: patient presents with leukocytosis, fever, tachycardia and karen. CTAP also shows pyelonephritis blood cultures growing gram negative bacilli, pending final ID of bacteria ceftriaxone discontinued by ID and patient started on Zosyn Monitor fever curve, tmax 102F Monitor vitals, labs. continue IVF. Code(s): A41.9 - SEPSIS, UNSPECIFIED ORGANISM (3) KAREN (acute kidney injury) Assessment/Plan: KAREN improving, continue hydration Code(s): N17.9 - ACUTE KIDNEY FAILURE, UNSPECIFIED (4) Hyponatremia Assessment/Plan: improved with IVF, monitor daily Code(s): E87.1 - HYPO-OSMOLALITY AND HYPONATREMIA (5) Nausea and vomiting Assessment/Plan: resolved. on zofran. Code(s): R11.2 - NAUSEA WITH VOMITING, UNSPECIFIED (6) New onset type 2 diabetes mellitus Assessment/Plan: New onset DM. BGMs over 400 today. SS tightened further. hmga1c 14.6 on levemir 15 bid monitor bgms with goal of maintaining fasting blood sugars <180 endocrinolgist following Code(s): E11.9 - TYPE 2 DIABETES MELLITUS WITHOUT COMPLICATIONS (7) Pyelonephritis Assessment/Plan: Seen by urology monitor intake and output toradol for pain Code(s): N12 - TUBULO-INTERSTITIAL NEPHRITIS, NOT SPCF ACUTE OR CHRONIC (8) UTI (urinary tract infection) Code(s): N39.0 - URINARY TRACT INFECTION, SITE NOT SPECIFIED (9) Sinus tachycardia by electrocardiogram Assessment/Plan: EKG 06/08/2019 shows left atrial enlargement, sinus tachyardia 116s. echo reviewed. Code(s): R00.0 - TACHYCARDIA, UNSPECIFIED (10) Prophylactic measure Assessment/Plan: fen IVF NS @ 125cc/hr monitor electrolytes low salt diet. prophy heparin full code Code(s): Z29.9 - ENCOUNTER FOR PROPHYLACTIC MEASURES, UNSPECIFIED Visit type - Emergency Visit Emergency Visit: Yes ED Registration Date: 06/07/19 Care time: The patient presented to the Emergency Department on the above date and was hospitalized for further evaluation of their emergent condition. - New Patient This patient is new to me today: No - Critical Care Critical Care patient: No - Discharge Referral Referred to [facility] No
--- NOTE | 2019-06-09 13:05 | ECHO ---
Name: PINKY GRIMES C Exam:Adult Echocardiogram Study Date: 06/09/2019 12:02 PM Age: 53 yrs Reason For Study: left atrial enlargment Height: 60 in Weight: 215 lb BSA: 1.9 m2 MMode/2D Measurements & Calculations IVSd: 2.8 cm Ao root diam: 2.8 cm LVIDd: 2.3 cm LA dimension: 3.4 cm LVIDs: 2.5 cm LVPWd: 1.4 cm LVPWs: 2.0 cm EDV(Teich): 18.2 ml ESV(Teich): 22.7 ml LVOT diam: 1.9 cm LAV (MOD-bp): 55.0 ml Doppler Measurements & Calculations MV E max marc: 110.1 cm/sec Ao V2 max: 144.8 cm/sec MV A max marc: 84.9 cm/sec Ao max P.4 mmHg MV E/A: 1.3 Ao V2 mean: 111.3 cm/sec MV dec time: 0.17 sec Ao mean P.6 mmHg Ao V2 VTI: 30.3 cm ELIANA(I,D): 2.6 cm2 ELIANA(V,D): 2.5 cm2 LV V1 max P.1 mmHg SV(LVOT): 80.1 ml LV V1 mean P.0 mmHg LV V1 max: 123.4 cm/sec LV V1 mean: 92.9 cm/sec LV V1 VTI: 27.1 cm PA V2 max: 81.1 cm/sec Med Peak E' Marc: 7.3 cm/sec PA max P.6 mmHg Med E/e': 15.0 Lat Peak E' Marc: 8.9 cm/sec Lat E/e': 12.4 Left Ventricle Mild basal septal hypertrophy. Ejection Fraction = 60-65%. The transmitral spectral Doppler flow gretchen cabrera is normal for age. Right Ventricle The right ventricle is normal in size and function. Atria The left atrium is borderline dilated. Mitral Valve The mitral valve is normal in structure and function. There is no mitral valve stenosis. Tricuspid Valve The tricuspid valve is normal in structure and function. There is mild tricuspid regurgitation. Aortic Valve The aortic valve opens well. No hemodynamically significant valvular aortic stenosis. No aortic regur gitation is present. Pulmonic Valve The pulmonic valve is not well seen, but is grossly normal. There is no pulmonic valvular stenosis. Great Vessels The aortic root is normal size. Pericardium/Pleura There is no pericardial effusion. Interpretation Summary Mild basal septal hypertrophy. Ejection Fraction = 60-65%. The right ventricle is normal in size and function. The left atrium is borderline dilated. There is mild tricuspid regurgitation. There is no pericardial effusion. MD Shah *Rosa M 06/09/2019 01:04 PM
[2019-06-10] MEDS ORDERED: PIPERACILLIN/TAZOBACTAM 3.375 GM VIAL IVPB ONE ×3 (02:58→17:23)
[2019-06-10] MEDS ORDERED: DEXTROSE 5%-WATER - 50 ML IVPB ONE ×3 (02:58→17:23)
[2019-06-10] MEDS: PIPERACILLIN/TAZOB 3.375 GM 3.375 GM in DEXTROSE 5%-WATER - 50 ML IVPB SCH ×3 (03:08→18:31)
[2019-06-10] MEDS ORDERED: INSULIN (LEVEMIR) 100 UNITS/ML UNITS SQ ONE (05:51)
[2019-06-10] MEDS: INSULIN (LEVEMIR) 100 UNITS/ML UNITS SQ SCH ×2 (06:06→21:55)
[2019-06-10] MEDS: INSULIN SLIDING SCALE (NOVOLOG) 1 VIAL SQ SCH ×4 (06:06→21:56)
[2019-06-10 10:43] LABS: BASO % 0.3 % (0-2.0); EOS % 1.3 % (0-4.5); HEMATOCRIT 36.2 % (32.4-45.2); HEMOGLOBIN 11.9 GM/dL (10.7-15.3); LYMPH % 11.4 % (8-40); MCH 28.1 pg (25.7-33.7); MCHC 32.9 g/dl (32.0-36.0); MEAN CELL VOLUME 85.3 fl (80-96); MEAN PLT VOLUME 9.4 fl (7.5-11.1); RBC 4.24 M/mm3 (3.60-5.2); RDW 13.2 % (11.6-15.6)
[2019-06-10 11:00] LABS: PLATELET COUNT 224 K/MM3 (134-434)
[2019-06-10 11:08] LABS: ALBUMIN 2.1 g/dl (3.4-5.0); BILIRUBIN,TOTAL 0.4 mg/dL (0.2-1); BLOOD UREA NITROGEN 11.9 mg/dL (7-18); CALCIUM 8.2 mg/dL (8.5-10.1); CREATININE 1.1 mg/dL (0.55-1.3); POTASSIUM 3.3 mmol/L (3.5-5.1); TOT PROT 6.5 g/dl (6.4-8.2)
--- NOTE | 2019-06-10 11:38 | PN ---
Progress Note, Physician History of Present Illness: stable one low grade spike yesterday - Current Medication List Current Medications: Active Medications Acetaminophen (Tylenol -) 650 mg PO Q6H PRN PRN Reason: FEVER Piperacillin Sod/Tazobactam (Sod 3.375 gm/ Dextrose) 50 mls @ 100 mls/hr IVPB Q8H-IV [facility]OILA; Protocol Last Admin: 06/10/19 10:06 Dose: 100 mls/hr Sodium Chloride (Normal Saline -) 1,000 mls @ 75 mls/hr IV ASDIR ZOILA Last Admin: 06/09/19 17:36 Dose: 75 mls/hr Insulin Aspart (Novolog Vial Sliding Scale -) 1 vial SQ HS [facility]; Protocol Last Admin: 06/09/19 22:27 Dose: 4 units Insulin Aspart (Novolog Vial Sliding Scale -) 1 vial SQ TIDAC [facility]; Protocol Last Admin: 06/10/19 06:06 Dose: 6 units Insulin Detemir (Levemir Vial) 15 units SQ BID@0700,2200 ZOILA Last Admin: 06/10/19 06:06 Dose: 15 units Ketorolac Tromethamine (Toradol) 10 mg PO Q6HPO PRN PRN Reason: PAIN LEVEL 7 - 10 Stop: 06/13/19 11:59 Last Admin: 06/08/19 16:21 Dose: 10 mg Ondansetron HCl (Zofran Injection) 4 mg IVPUSH Q6H PRN PRN Reason: NAUSEA AND/OR VOMITING - Objective Vital Signs: Vital Signs Temperature 98.2 F 06/10/19 10:15 Pulse Rate 106 H 06/10/19 10:15 Respiratory Rate 19 06/10/19 10:15 Blood Pressure 130/77 06/10/19 10:15 O2 Sat by Pulse Oximetry (%) 97 06/10/19 09:00 Constitutional: Yes: No Distress, Calm Cardiovascular: Yes: S1, S2 Respiratory: Yes: Regular, CTA Bilaterally Gastrointestinal: Yes: Normal Bowel Sounds, Soft Musculoskeletal: Yes: WNL Extremities: Yes: WNL Neurological: Yes: Alert, Oriented Psychiatric: Yes: Alert, Oriented Labs: CBC, BMP 06/10/19 10:15 06/10/19 10:15 Assessment/Plan roble List - Problem (1) Pyelonephritis Code(s): N12 - TUBULO-INTERSTITIAL NEPHRITIS, NOT SPCF ACUTE OR CHRONIC (2) Sepsis Code(s): A41.9 - SEPSIS, UNSPECIFIED ORGANISM (3) New onset type 2 diabetes mellitus Code(s): E11.9 - TYPE 2 DIABETES MELLITUS WITHOUT COMPLICATIONS (4) Hyponatremia Code(s): E87.1 - HYPO-OSMOLALITY AND HYPONATREMIA (5) Nausea and vomiting Code(s): R11.2 - NAUSEA WITH VOMITING, UNSPECIFIED (6) KEDAR (acute kidney injury) Code(s): N17.9 - ACUTE KIDNEY FAILURE, UNSPECIFIED (7) UTI (urinary tract infection) Code(s): N39.0 - URINARY TRACT INFECTION, SITE NOT SPECIFIED plan continue abx will see the lab work tomorrow and make a decision rest as per the team
[2019-06-10] MEDS ORDERED: POTASSIUM CHLORIDE TABS 20 MEQ TABLET.ER (FP) PO ONE (13:15)
--- NOTE | 2019-06-10 14:01 | PN ---
Progress Note (short form) - Note Progress Note: Feels better Mild Rt flank pain Vital Signs Period Temp Pulse Resp BP Sys/Arnold Pulse Ox Last 24 Hr 97.6 F-98.8 F 93-106 19-20 130-145/72-80 97-97 PE: AOx3 Neck: Supple, Lunsg: CTA CVS: S1S2 Abd: Benign EXt: No edema CMP Sodium 138 mmol/L (136-145) 06/10/19 10:15 Potassium 3.3 mmol/L (3.5-5.1) L 06/10/19 10:15 Chloride 102 mmol/L (98-107) 06/10/19 10:15 Carbon Dioxide 27 mmol/L (21-32) 06/10/19 10:15 Anion Gap 8 MMOL/L (8-16) 06/10/19 10:15 BUN 11.9 mg/dL (7-18) 06/10/19 10:15 Creatinine 1.1 mg/dL (0.55-1.3) 06/10/19 10:15 Est GFR (CKD-EPI)AfAm 67.32 06/10/19 10:15 Est GFR (CKD-EPI)NonAf 58.08 06/10/19 10:15 POC Glucometer 212 UNITS (80-120) 06/09/19 06:09 Random Glucose 273 mg/dL (74-106) H 06/10/19 10:15 Hemoglobin A1c % 14.6 % (4.2-6.3) H 06/08/19 06:39 Serum Osmolality 297 mosm/kg (278-305) 06/08/19 01:05 Lactic Acid 1.3 mmol/L (0.4-2.0) 06/08/19 06:39 Calcium 8.2 mg/dL (8.5-10.1) L 06/10/19 10:15 Magnesium 2.0 mg/dL (1.8-2.4) 06/10/19 10:15 Total Bilirubin 0.4 mg/dL (0.2-1) 06/10/19 10:15 AST 30 U/L (15-37) 06/10/19 10:15 ALT 31 U/L (13-61) 06/10/19 10:15 Alkaline Phosphatase 110 U/L (45-117) 06/10/19 10:15 Total Protein 6.5 g/dl (6.4-8.2) 06/10/19 10:15 Albumin 2.1 g/dl (3.4-5.0) L 06/10/19 10:15 Lipase 222 U/L (73-393) 06/07/19 16:39 Serum , Qual Negative 06/07/19 16:39 Current Medications Generic Name Dose Route Start Last Admin Trade Name Freq PRN Reason Stop Dose Admin Acetaminophen 650 mg 06/08/19 14:55 Tylenol - PO Q6H PRN FEVER Piperacillin Sod/Tazobactam 50 mls @ 100 mls/hr 06/08/19 12:45 06/10/19 10:06 Sod 3.375 gm/ Dextrose IVPB 100 mls/hr Q8H-IV ZOILA Administration Protocol Sodium Chloride 1,000 mls @ 75 mls/hr 06/09/19 15:23 06/09/19 17:36 Normal Saline - IV 75 mls/hr ASDIR ZOILA Administration Insulin Aspart 1 vial 06/08/19 22:00 06/09/19 22:27 Novolog Vial Sliding Scale - SQ 4 units HS ZOILA Administration Protocol Insulin Aspart 1 vial 06/09/19 07:00 06/10/19 11:44 Novolog Vial Sliding Scale - SQ 8 units TIDAC ZOILA Administration Protocol Insulin Detemir 15 units 06/09/19 12:42 06/10/19 06:06 Levemir Vial SQ 15 units BID@0700,2200 ZOILA Administration Ketorolac Tromethamine 10 mg 06/08/19 11:29 06/08/19 16:21 Toradol PO 06/13/19 11:59 10 mg Q6HPO PRN Administration PAIN LEVEL 7 - 10 Ondansetron HCl 4 mg 06/08/19 00:01 Zofran Injection IVPUSH Q6H PRN NAUSEA AND/OR VOMITING AP: UTI Pyelonephritis New Onset DM: A1c 14.6 KEDAR: resolving BGM Q ACHS Nutrition consult Levermir 18 BID Novolog SS coverage Will need to go home on Insulin Teach pt to self monitor blood glucose and self administer Insulin Will f/u
--- NOTE | 2019-06-10 14:46 | PN ---
Progress Note, Physician Chief Complaint: patient reports right flank pain and weakness. denies chest pain or shortness of breath. echo reviewed, shows mild basal septal hypertrophy History of Present Illness: Patient is a 53 year old female with a significant past medical history of renal calculi (no surgical intervention). Who presents to the ED with bilious vomiting, subjective fever, chills, right flank pain x 3 days, polyuria, polydipsia x 1 month. Patient denies cough, dizziness, chest pain or shortness of breath. She reports feeling weak. On admission, a CTAP showed acute phyelonephritis, and an abdominal ultrasound showed fatty liver. Labs on admission showed WBC 25.4, glucose 525, hyponatremia. She was noted to have acute onset diabetes mellitus and supervisor microfilm duplicating unit has been consulted. - Current Medication List Current Medications: Active Medications Acetaminophen (Tylenol -) 650 mg PO Q6H PRN PRN Reason: FEVER Piperacillin Sod/Tazobactam (Sod 3.375 gm/ Dextrose) 50 mls @ 100 mls/hr IVPB Q8H-IV [facility]; Protocol Last Admin: 06/10/19 10:06 Dose: 100 mls/hr Sodium Chloride (Normal Saline -) 1,000 mls @ 75 mls/hr IV ASDIR [facility] Last Admin: 06/09/19 17:36 Dose: 75 mls/hr Insulin Aspart (Novolog Vial Sliding Scale -) 1 vial SQ HS [facility]; Protocol Last Admin: 06/09/19 22:27 Dose: 4 units Insulin Aspart (Novolog Vial Sliding Scale -) 1 vial SQ TIDAC [facility]; Protocol Last Admin: 06/10/19 11:44 Dose: 8 units Insulin Detemir (Levemir Vial) 18 units SQ BID@0700,2200 [facility] Ketorolac Tromethamine (Toradol) 10 mg PO Q6HPO PRN PRN Reason: PAIN LEVEL 7 - 10 Stop: 06/13/19 11:59 Last Admin: 06/08/19 16:21 Dose: 10 mg Ondansetron HCl (Zofran Injection) 4 mg IVPUSH Q6H PRN PRN Reason: NAUSEA AND/OR VOMITING - Objective Vital Signs: Vital Signs Temperature 98.2 F 06/10/19 10:15 Pulse Rate 106 H 06/10/19 10:15 Respiratory Rate 19 06/10/19 10:15 Blood Pressure 130/77 06/10/19 10:15 O2 Sat by Pulse Oximetry (%) 97 06/10/19 09:00 Constitutional: Yes: Well Nourished, No Distress HENT: Yes: WNL Neck: Yes: WNL Cardiovascular: Yes: Regular Rate and Rhythm Respiratory: Yes: Regular Gastrointestinal: Yes: Normal Bowel Sounds ...Rectal Exam: Yes: Deferred Genitourinary: Yes: WNL Edema: No Labs: CBC, BMP 06/10/19 10:15 06/10/19 10:15 Problem List - Problems (1) Bacteremia Assessment/Plan: + blood cultures and urine cultures growing klebsiella awaiting sensititivies on Zosyn per ID Code(s): R78.81 - BACTEREMIA (2) Sepsis Assessment/Plan: patient presents with leukocytosis, fever, tachycardia and kedar. CTAP also shows pyelonephritis blood cultures growing gram negative bacilli, pending final ID of bacteria ceftriaxone discontinued by ID and patient started on Zosyn Monitor vitals, labs. continue IVF. Code(s): A41.9 - SEPSIS, UNSPECIFIED ORGANISM (3) KEDAR (acute kidney injury) Assessment/Plan: KEDAR improving, continue hydration Code(s): N17.9 - ACUTE KIDNEY FAILURE, UNSPECIFIED (4) Hyponatremia Assessment/Plan: improved with IVF, monitor daily Code(s): E87.1 - HYPO-OSMOLALITY AND HYPONATREMIA (5) Nausea and vomiting Assessment/Plan: resolved. on zofran. Code(s): R11.2 - NAUSEA WITH VOMITING, UNSPECIFIED (6) New onset type 2 diabetes mellitus Assessment/Plan: New onset DM. BGMs over 400 today. SS tightened further. hmga1c 14.6 on levemir 15 bid monitor bgms with goal of maintaining fasting blood sugars <180 endocrinolgist following Code(s): E11.9 - TYPE 2 DIABETES MELLITUS WITHOUT COMPLICATIONS (7) Pyelonephritis Assessment/Plan: Seen by urology monitor intake and output toradol for pain Code(s): N12 - TUBULO-INTERSTITIAL NEPHRITIS, NOT SPCF ACUTE OR CHRONIC (8) UTI (urinary tract infection) Code(s): N39.0 - URINARY TRACT INFECTION, SITE NOT SPECIFIED (9) Sinus tachycardia by electrocardiogram Code(s): R00.0 - TACHYCARDIA, UNSPECIFIED (10) Prophylactic measure Code(s): Z29.9 - ENCOUNTER FOR PROPHYLACTIC MEASURES, UNSPECIFIED Visit type - Emergency Visit Emergency Visit: Yes ED Registration Date: 06/07/19 Care time: The patient presented to the Emergency Department on the above date and was hospitalized for further evaluation of their emergent condition. - New Patient This patient is new to me today: No - Critical Care Critical Care patient: No - Discharge Referral Referred to [facility] Med P.C.: No
[2019-06-10] MEDS: SODIUM CHLORIDE 1,000 ML IV SCH (18:31)
[2019-06-11] MEDS ORDERED: PIPERACILLIN/TAZOBACTAM 3.375 GM VIAL IVPB ONE ×4 (01:38→16:42)
[2019-06-11] MEDS ORDERED: DEXTROSE 5%-WATER - 50 ML IVPB ONE ×4 (01:38→16:42)
[2019-06-11] MEDS: PIPERACILLIN/TAZOB 3.375 GM 3.375 GM in DEXTROSE 5%-WATER - 50 ML IVPB SCH ×3 (01:45→17:06)
[2019-06-11] MEDS: INSULIN (LEVEMIR) 100 UNITS/ML UNITS SQ SCH ×2 (06:27→21:36)
[2019-06-11] MEDS: INSULIN SLIDING SCALE (NOVOLOG) 1 VIAL SQ SCH ×4 (06:27→21:35)
[2019-06-11] MEDS: SODIUM CHLORIDE 1,000 ML IV SCH (06:29)
--- NOTE | 2019-06-11 09:02 | CONSULT ---
Consult Consult Specialty:: Podiatry Reason for Consultation:: Onychomycosis b/l feet - Smoking History Smoking history: Never smoked Home Medications - Allergies Allergies/Adverse Reactions: Allergies Allergy/AdvReac Type Severity Reaction Status Date / Time No Known Allergies Allergy Verified 06/07/19 15:05 - Home Medications Home Medications: Ambulatory Orders NK [No Known Home Medication] 06/07/19 Family Disease History - Family Disease History Family Disease History: Diabetes: Mother Physical Exam Vital Signs: Vital Signs Temperature 98.0 F 06/11/19 03:00 Pulse Rate 99 H 06/11/19 03:00 Respiratory Rate 20 06/10/19 21:00 Blood Pressure 133/86 06/11/19 03:00 O2 Sat by Pulse Oximetry (%) 97 06/10/19 22:00 Extremities: Yes: Other (+onychomycosis b/l hallux and 5th toes b/l, no open wounds noted, -drainage, +tender right big toe lateral nail fold(patient states she was digging into the area to get rid of fungus)) Labs: CBC, BMP 06/10/19 10:15 06/10/19 10:15 Assessment/Plan 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 Advised not to cut her own nails. Will follow. Abx as per ID. Do not believe increaed wbc from foot. xray right foot to rule out om right hallux.
[2019-06-11 09:37] LABS: BASO % 0.5 % (0-2.0); EOS % 2.6 % (0-4.5); HEMATOCRIT 36.8 % (32.4-45.2); HEMOGLOBIN 12.2 GM/dL (10.7-15.3); LYMPH % 18.9 % (8-40); MCH 28.3 pg (25.7-33.7); MCHC 33.2 g/dl (32.0-36.0); MEAN CELL VOLUME 85.2 fl (80-96); MEAN PLT VOLUME 9.2 fl (7.5-11.1); MONO % 8.6 % (3.8-10.2); NEUT % 69.4 % (42.8-82.8); RBC 4.32 M/mm3 (3.60-5.2); RDW 13.5 % (11.6-15.6); WHITE BLOOD COUNT 12.7 K/mm3 (4.0-10.0)
[2019-06-11 09:44] LABS: PLATELET COUNT 262 K/MM3 (134-434)
[2019-06-11 10:01] LABS: ALBUMIN 2.2 g/dl (3.4-5.0); BILIRUBIN,TOTAL 0.3 mg/dL (0.2-1); BLOOD UREA NITROGEN 10.6 mg/dL (7-18); CALCIUM 8.6 mg/dL (8.5-10.1); MAGNESIUM 1.9 mg/dL (1.8-2.4); POTASSIUM 4.1 mmol/L (3.5-5.1); TOT PROT 6.9 g/dl (6.4-8.2)
--- NOTE | 2019-06-11 10:07 | PN ---
Progress Note, Physician Chief Complaint: patient reports right flank pain and weakness. denies chest pain or shortness of breath. echo reviewed, shows mild basal septal hypertrophy History of Present Illness: Patient is a 53 year old female with a significant past medical history of renal calculi (no surgical intervention). Who presents to the ED with bilious vomiting, subjective fever, chills, right flank pain x 3 days, polyuria, polydipsia x 1 month. Patient denies cough, dizziness, chest pain or shortness of breath. She reports feeling weak. On admission, a CTAP showed acute phyelonephritis, and an abdominal ultrasound showed fatty liver. Labs on admission showed WBC 25.4, glucose 525, hyponatremia. She was noted to have acute onset diabetes mellitus and covered buckle assembler has been consulted. - Current Medication List Current Medications: Active Medications Acetaminophen (Tylenol -) 650 mg PO Q6H PRN PRN Reason: FEVER Piperacillin Sod/Tazobactam (Sod 3.375 gm/ Dextrose) 50 mls @ 100 mls/hr IVPB Q8H-IV [facility]; Protocol Last Admin: 06/11/19 09:01 Dose: 100 mls/hr Sodium Chloride (Normal Saline -) 1,000 mls @ 75 mls/hr IV ASDIR [facility] Last Admin: 06/11/19 06:29 Dose: 75 mls/hr Insulin Aspart (Novolog Vial Sliding Scale -) 1 vial SQ HS [facility]; Protocol Last Admin: 06/10/19 21:56 Dose: 2 units Insulin Aspart (Novolog Vial Sliding Scale -) 1 vial SQ TIDAC [facility]; Protocol Last Admin: 06/11/19 06:27 Dose: Not Given Insulin Detemir (Levemir Vial) 18 units SQ BID@0700,2200 [facility] Last Admin: 06/11/19 06:27 Dose: 18 units Ketorolac Tromethamine (Toradol) 10 mg PO Q6HPO PRN PRN Reason: PAIN LEVEL 7 - 10 Stop: 06/13/19 11:59 Last Admin: 06/08/19 16:21 Dose: 10 mg Ondansetron HCl (Zofran Injection) 4 mg IVPUSH Q6H PRN PRN Reason: NAUSEA AND/OR VOMITING - Objective Vital Signs: Vital Signs Temperature 98.2 F 06/11/19 09:00 Pulse Rate 92 H 06/11/19 09:00 Respiratory Rate 19 14/19 09:00 Blood Pressure 145/73 06/11/19 09:00 O2 Sat by Pulse Oximetry (%) 97 06/10/19 22:00 Constitutional: Yes: Well Nourished, No Distress, Calm Eyes: Yes: WNL HENT: Yes: WNL Neck: Yes: WNL Cardiovascular: Yes: WNL, Regular Rate and Rhythm Respiratory: Yes: Regular Gastrointestinal: Yes: Normal Bowel Sounds, Soft, Abdomen, Obese ...Rectal Exam: Yes: Deferred Extremities: Yes: WNL Integumentary: Yes: Other (right great toe bruise/contusion) Neurological: Yes: WNL, Alert, Oriented ...Motor Strength: WNL Psychiatric: Yes: Alert, Oriented Labs: CBC, BMP 06/11/19 09:05 06/11/19 09:05 Problem List - Problems (1) Bacteremia Assessment/Plan: + blood cultures and urine cultures growing klebsiella on Zosyn per ID Code(s): R78.81 - BACTEREMIA (2) Sepsis Assessment/Plan: patient presents with leukocytosis, fever, tachycardia and kedar. CTAP also shows pyelonephritis blood cultures growing gram negative bacilli, pending final ID of bacteria ceftriaxone discontinued by ID and patient started on Zosyn Monitor vitals, labs. continue IVF. Code(s): A41.9 - SEPSIS, UNSPECIFIED ORGANISM (3) KEDAR (acute kidney injury) Assessment/Plan: KEDAR resolved. stop ivf. Code(s): N17.9 - ACUTE KIDNEY FAILURE, UNSPECIFIED (4) Hyponatremia Assessment/Plan: improved with IVF, monitor daily Code(s): E87.1 - HYPO-OSMOLALITY AND HYPONATREMIA (5) Nausea and vomiting Assessment/Plan: resolved. on zofran. Code(s): R11.2 - NAUSEA WITH VOMITING, UNSPECIFIED (6) New onset type 2 diabetes mellitus Assessment/Plan: New onset DM. BGMs better controlled patient uninsured and unable to afford cost of insuling (~$340) per vial will discuss endocrinology hmga1c 14.6 on levemir 15 bid and SS Code(s): E11.9 - TYPE 2 DIABETES MELLITUS WITHOUT COMPLICATIONS (7) Pyelonephritis Assessment/Plan: Seen by urology monitor intake and output toradol for pain Code(s): N12 - TUBULO-INTERSTITIAL NEPHRITIS, NOT SPCF ACUTE OR CHRONIC (8) UTI (urinary tract infection) Code(s): N39.0 - URINARY TRACT INFECTION, SITE NOT SPECIFIED (9) Sinus tachycardia by electrocardiogram Assessment/Plan: EKG 06/08/2019 shows left atrial enlargement, sinus tachyardia 116s. echo reviewed. Code(s): R00.0 - TACHYCARDIA, UNSPECIFIED (10) Morbid obesity Assessment/Plan: discussed weight loss with patient and increase in exercise Code(s): E66.01 - MORBID (SEVERE) OBESITY DUE TO EXCESS CALORIES (11) Prophylactic measure Assessment/Plan: fen monitor electrolytes low salt diet. prophy heparin full code Code(s): Z29.9 - ENCOUNTER FOR PROPHYLACTIC MEASURES, UNSPECIFIED Visit type - Emergency Visit Emergency Visit: Yes ED Registration Date: 06/07/19 Care time: The patient presented to the Emergency Department on the above date and was hospitalized for further evaluation of their emergent condition. - New Patient This patient is new to me today: No - Critical Care Critical Care patient: No - Discharge Referral Referred to [facility] Med P.C.: No
--- NOTE | 2019-06-11 10:26 | PN ---
Progress Note, Physician History of Present Illness: stable no new issues - Current Medication List Current Medications: Active Medications Acetaminophen (Tylenol -) 650 mg PO Q6H PRN PRN Reason: FEVER Piperacillin Sod/Tazobactam (Sod 3.375 gm/ Dextrose) 50 mls @ 100 mls/hr IVPB Q8H-IV [facility]; Protocol Last Admin: 06/11/19 09:01 Dose: 100 mls/hr Insulin Aspart (Novolog Vial Sliding Scale -) 1 vial SQ HS [facility]; Protocol Last Admin: 06/10/19 21:56 Dose: 2 units Insulin Aspart (Novolog Vial Sliding Scale -) 1 vial SQ TIDAC [facility]; Protocol Last Admin: 06/11/19 06:27 Dose: Not Given Insulin Detemir (Levemir Vial) 18 units SQ BID@0700,2200 [facility] Last Admin: 06/11/19 06:27 Dose: 18 units Ketorolac Tromethamine (Toradol) 10 mg PO Q6HPO PRN PRN Reason: PAIN LEVEL 7 - 10 Stop: 06/13/19 11:59 Last Admin: 06/08/19 16:21 Dose: 10 mg Ondansetron HCl (Zofran Injection) 4 mg IVPUSH Q6H PRN PRN Reason: NAUSEA AND/OR VOMITING - Objective Vital Signs: Vital Signs Temperature 98.2 F 06/11/19 09:00 Pulse Rate 92 H 06/11/19 09:00 Respiratory Rate 19 06/11/19 09:00 Blood Pressure 145/73 06/11/19 09:00 O2 Sat by Pulse Oximetry (%) 97 06/10/19 22:00 Constitutional: Yes: No Distress, Calm, Obese Cardiovascular: Yes: Regular Rate and Rhythm Respiratory: Yes: Regular, CTA Bilaterally Gastrointestinal: Yes: Normal Bowel Sounds, Soft Musculoskeletal: Yes: WNL Extremities: Yes: WNL Neurological: Yes: Alert, Oriented Psychiatric: Yes: Alert, Oriented Labs: CBC, BMP 06/11/19 09:05 06/11/19 09:05 Assessment/Plan roble List - Problem (1) Pyelonephritis Code(s): N12 - TUBULO-INTERSTITIAL NEPHRITIS, NOT SPCF ACUTE OR CHRONIC (2) Sepsis Code(s): A41.9 - SEPSIS, UNSPECIFIED ORGANISM (3) New onset type 2 diabetes mellitus Code(s): E11.9 - TYPE 2 DIABETES MELLITUS WITHOUT COMPLICATIONS (4) Hyponatremia Code(s): E87.1 - HYPO-OSMOLALITY AND HYPONATREMIA (5) Nausea and vomiting Code(s): R11.2 - NAUSEA WITH VOMITING, UNSPECIFIED (6) KEDAR (acute kidney injury) Code(s): N17.9 - ACUTE KIDNEY FAILURE, UNSPECIFIED (7) UTI (urinary tract infection) Code(s): N39.0 - URINARY TRACT INFECTION, SITE NOT SPECIFIED plan continue abx all cx noted hopefully can switch to oral tomorrow rest as per the team
[2019-06-11 12:04] LABS: CHOLESTEROL 160 mg/dL (50-200); HDL CHOLESTEROL 29 mg/dL (40-60); TRIGLYCERIDES 212 mg/dL (0-150)
[2019-06-11] MEDS ORDERED: ATORVASTATIN CA 20 MG TABLET (FP) PO SCH (22:00)
[2019-06-12] MEDS ORDERED: PIPERACILLIN/TAZOBACTAM 3.375 GM VIAL IVPB ONE ×2 (01:28→08:16)
[2019-06-12] MEDS ORDERED: DEXTROSE 5%-WATER - 50 ML IVPB ONE ×2 (01:28→08:16)
[2019-06-12] MEDS: PIPERACILLIN/TAZOB 3.375 GM 3.375 GM in DEXTROSE 5%-WATER - 50 ML IVPB SCH ×2 (01:48→09:17)
[2019-06-12] MEDS: INSULIN (LEVEMIR) 100 UNITS/ML UNITS SQ SCH (06:17)
[2019-06-12] MEDS: INSULIN SLIDING SCALE (NOVOLOG) 1 VIAL SQ SCH ×2 (06:18→10:35)
[2019-06-12 06:32] VITALS: PULSE 87
[2019-06-12] MEDS ORDERED: INSULIN (NOVOLOG) ASPART 100 UNITS/ML 10ML VIAL ONE (06:41)
--- NOTE | 2019-06-12 09:43 | PN ---
Progress Note, Physician History of Present Illness: stable no new issues afebrile - Current Medication List Current Medications: Active Medications Acetaminophen (Tylenol -) 650 mg PO Q6H PRN PRN Reason: FEVER Atorvastatin Calcium (Lipitor -) 20 mg PO HS [facility] Last Admin: 06/11/19 21:35 Dose: 20 mg Piperacillin Sod/Tazobactam (Sod 3.375 gm/ Dextrose) 50 mls @ 100 mls/hr IVPB Q8H-IV [facility]; Protocol Last Admin: 06/12/19 09:17 Dose: 100 mls/hr Insulin Aspart (Novolog Vial Sliding Scale -) 1 vial SQ HS [facility]; Protocol Last Admin: 06/11/19 21:35 Dose: Not Given Insulin Aspart (Novolog Vial Sliding Scale -) 1 vial SQ TIDAC [facility]; Protocol Last Admin: 06/12/19 06:18 Dose: Not Given Insulin Detemir (Levemir Vial) 18 units SQ BID@0700,2200 [facility] Last Admin: 06/12/19 06:17 Dose: 18 units Ketorolac Tromethamine (Toradol) 10 mg PO Q6HPO PRN PRN Reason: PAIN LEVEL 7 - 10 Stop: 06/13/19 11:59 Last Admin: 06/08/19 16:21 Dose: 10 mg Ondansetron HCl (Zofran Injection) 4 mg IVPUSH Q6H PRN PRN Reason: NAUSEA AND/OR VOMITING - Objective Vital Signs: Vital Signs Temperature 98.5 F 06/12/19 05:00 Pulse Rate 87 06/12/19 05:00 Respiratory Rate 19 06/12/19 05:00 Blood Pressure 138/79 06/12/19 05:00 O2 Sat by Pulse Oximetry (%) 97 06/11/19 22:00 Constitutional: Yes: No Distress, Calm Cardiovascular: Yes: Regular Rate and Rhythm Respiratory: Yes: Regular, CTA Bilaterally Gastrointestinal: Yes: Normal Bowel Sounds, Soft Musculoskeletal: Yes: WNL Extremities: Yes: WNL Neurological: Yes: Alert, Oriented Psychiatric: Yes: Alert, Oriented Labs: CBC, BMP 06/11/19 09:05 06/11/19 09:05 Assessment/Plan roblem List - Problem (1) Pyelonephritis Code(s): N12 - TUBULO-INTERSTITIAL NEPHRITIS, NOT SPCF ACUTE OR CHRONIC (2) Sepsis Code(s): A41.9 - SEPSIS, UNSPECIFIED ORGANISM (3) New onset type 2 diabetes mellitus Code(s): E11.9 - TYPE 2 DIABETES MELLITUS WITHOUT COMPLICATIONS (4) Hyponatremia Code(s): E87.1 - HYPO-OSMOLALITY AND HYPONATREMIA (5) Nausea and vomiting Code(s): R11.2 - NAUSEA WITH VOMITING, UNSPECIFIED (6) KEDAR (acute kidney injury) Code(s): N17.9 - ACUTE KIDNEY FAILURE, UNSPECIFIED (7) UTI (urinary tract infection) Code(s): N39.0 - URINARY TRACT INFECTION, SITE NOT SPECIFIED plan patient can be switched to cipor 500 mg po bid for another 10 days rest as per the team
[2019-06-12 11:04] VITALS: BP 140/77; TEMP 97.7
--- NOTE | 2019-06-12 11:35 | DS ---
Physical Exam: SUBJECTIVE: Patient seen and examined at the bedside. I called Silviano Wren, total cost for patient for insulin will be: levemir pen $ 103 per pen, Humalog KiwiPen $123 per pen, needles $61 per 100 needles. Ciproflaxin 500mg #30 pills called into [facility] pharmacy (down stairs) at a reduced cost of $9.00. will also call in a glucometer to [facility] pharmacy. OBJECTIVE: Patient is a 53 year old female with a significant past medical history of renal calculi (no surgical intervention). Who presents to the ED with bilious vomiting, subjective fever, chills, right flank pain x 3 days, polyuria, polydipsia x 1 month. Patient denies cough, dizziness, chest pain or shortness of breath. She reports feeling weak. On admission, a CTAP showed acute phyelonephritis, and an abdominal ultrasound showed fatty liver. Labs on admission showed WBC 25.4, glucose 525, hyponatremia. She was noted to have acute onset diabetes mellitus and manager professional development has been consulted. staff therapist taught patient how to use self administer insulin, how to use a sliding scale and the difference between Levemir and Humalog. Patient verbalized understanding and was able to self administer insulin based on sliding scale. Vital Signs Period Temp Pulse Resp BP Sys/Arnold Pulse Ox Last 24 Hr 97.7 F-98.5 F 80-87 18-20 138-157/77-97 97-97 PHYSICAL EXAM GENERAL: The patient is awake, alert, and fully oriented, in no acute distress. HEAD: Normal with no signs of trauma. EYES: PERRL, extraocular movements intact, sclera anicteric, conjunctiva clear. ENT: Ears normal, nares patent, oropharynx clear without exudates, moist mucous membranes. NECK: Trachea midline, full range of motion, supple. LUNGS: Breath sounds equal HEART: Regular rate and rhythm ABDOMEN: Soft, nontender, nondistended, normoactive bowel sounds, no guarding, no rebound, no hepatosplenomegaly, no masses. EXTREMITIES: no edema. right great toe with small area of ingrown toe nail, followed by podiatry during hospital stay NEUROLOGICAL: Normal speech, gait not observed. PSYCH: Normal mood, normal affect. SKIN: Warm, dry, normal turgor, no rashes or lesions noted. LABS Laboratory Results - last 24 hr 06/09/19 06/09/19 06/09/19 11:48 17:25 20:55 POC Glucometer 259 232 280 Triglycerides Cholesterol Total LDL Cholesterol HDL Cholesterol 06/10/19 06/10/19 06/10/19 06:04 11:41 17:17 POC Glucometer 218 264 229 Triglycerides Cholesterol Total LDL Cholesterol HDL Cholesterol 06/10/19 06/11/19 06/11/19 21:54 05:46 10:00 POC Glucometer 217 134 Triglycerides 212 H Cholesterol 160 Total LDL Cholesterol 109 H HDL Cholesterol 29 L 06/11/19 06/11/19 06/11/19 12:05 16:55 21:34 POC Glucometer 219 215 167 Triglycerides Cholesterol Total LDL Cholesterol HDL Cholesterol 06/12/19 06/12/19 05:51 10:34 POC Glucometer 118 245 Triglycerides Cholesterol Total LDL Cholesterol HDL Cholesterol HOSPITAL COURSE: Date of Admission:06/07/19 Date of Discharge: 06/12/19 Minutes to complete discharge: 60 Discharge Summary Reason For Visit: PYELONEPHRITIS Current Active Problems KEDAR (acute kidney injury) (Acute) Bacteremia (Acute) Hyponatremia (Acute) Morbid obesity (Acute) Nausea and vomiting (Acute) New onset type 2 diabetes mellitus (Acute) Prophylactic measure (Acute) Pyelonephritis (Acute) Sepsis (Acute) Sinus tachycardia by electrocardiogram (Acute) Tachycardia (Acute) UTI (urinary tract infection) (Acute) Condition: Stable - Instructions Diet, Activity, Other Instructions: Mrs Baires: You were admitted for an infection and you were found to have diabetes. Here are our recommendations DIABETES you will need Insulin (Humalog/Novolog) and LONG ACTING INSULIN (levemir). Here is how you will take it Take your blood sugar 15 minuts before you eat and follow this sliding scale: If your sugar is between 101-150 NO INSULIN IS NEEDED. If your sugar is between 151-200, give yourself 4 units of insulin If your sugar is between 201-250, give yourself 6 units of insulin If your sugar is between 251-300, give yourself 8 units of insulin If your sugar is between 301-350, give yourself 10 units of insulin If your sugar is between 351-400, give yourself 12 units of insulin If your blood sugar is 400 or higher, take 14 units of insulin and repeat your blood sugar in 15 minutes. If it remains above 400, please return the the nearest emergency room. Levemir is the LONG acting insulin. Give yourself 18 units in the morning and 18 units at bedtime. If your blood sugar gets low (less than 70), please do not take ANY insulin or ANY Levemir and drink apple juice until your blood sugar stabilizes. It is important that you see a doctor that can help you manage your diabetes. We have made an appointment for you with Dr. Leyva for June 19. However, you can also go to the clinic at [address] [place] [address] ([facility] clinic). INFECTION: You were found to have an infection in your urine that went into your blood. For the infection, you will sent home with Ciproflaxin 500mg TWICE per day. Take this medication in the morning at 8am and in the evening at 8pm. Take it with food. This medication is a cost of $9.00 at [facility] (down stairs ). Follow ups: I have made an appointment for you to see a doctor next week 10:30a.m. On Wednesday - June 19. with Dr. Leyva. The cost will be $150.00 for an office visit. You can also be seen at the [facility] at [address] [place] [address]. They provide medical services at a low cost. Their phone number is [phone]. Thank you for allowing us to care for you [facility] APPRENT[facility]KEY [phone] Referrals: Judd Leyva MD [Staff Physician] - (next week 10:30 wednesday - June 19. with Dr. Leyva. The cost will be $150.00 for office visit.) Elsy Hills MD [Staff Physician] - 1 Week Julio Aguilar DPM [Staff Physician] - 2 Weeks - Home Medications Comprehensive Discharge Medication List: Ambulatory Orders Ciprofloxacin [Cipro -] 500 mg PO Q12H #20 tablet 06/12/19 Ciprofloxacin [Cipro -] 500 mg PO Q12H #20 tablet 06/12/19 Insulin Detemir [Levemir Flextouch] 18 unit SQ BID #5 insuln.pen 06/12/19 Insulin Lispro [Humalog Kwikpen U-100] 100 unit SQ ACHS #5 insuln.pen 06/12/19 Lancets [Glucocom Lancets] 1 each ACHS #100 each 06/12/19 Miscellaneous Medical Supply [Glucometer Device] 1 each SQ ASDIR #1 kit Miscellaneous Medical Supply [Glucometer Test Strips #100] 1 each SQ ASDIR #1 box 06/12/19 [place], Safety [Easy Touch Fliplock [place]] 1 each ACHS #100 dis.needle Problem List - Problems (1) Bacteremia Assessment/Plan: + blood cultures and urine cultures grew klebsiella, treated with Zosyn during hospitalization and will be transitioned to Cipro 500mg TWICE daily for 10 days. Code(s): R78.81 - BACTEREMIA (2) Sepsis Assessment/Plan: Resolved. patient presents with leukocytosis, fever, tachycardia and kedar. CTAP also shows pyelonephritis blood cultures/urine cultures with klebsiella. Transitioned to Cipro 500mg BID x 10 days Code(s): A41.9 - SEPSIS, UNSPECIFIED ORGANISM (3) KEDAR (acute kidney injury) Assessment/Plan: KEDAR resolved. Code(s): N17.9 - ACUTE KIDNEY FAILURE, UNSPECIFIED (4) Hyponatremia Assessment/Plan: improved with IVF, monitor daily Code(s): E87.1 - HYPO-OSMOLALITY AND HYPONATREMIA (5) Nausea and vomiting Assessment/Plan: resolved. Code(s): R11.2 - NAUSEA WITH VOMITING, UNSPECIFIED (6) New onset type 2 diabetes mellitus Assessment/Plan: New onset DM. BGMs better controlled hmga1c 14.6 Patient to self pay and get insulin from her pharmacy. Costs of each pen ~$ 110. Patient will pay out of pocket. She is attempting to apply for insurance as an outpatient. she has been made a follow up appointment at a low cost. She is also encouraged to go to the clinic at [facility] care for follow up. patient seen by dietary during hospitalization Patient also taught how to use a SS, and self administer insulin. Code(s): E11.9 - TYPE 2 DIABETES MELLITUS WITHOUT COMPLICATIONS (7) Pyelonephritis Assessment/Plan: Seen by urology. oupt follow up. Code(s): N12 - TUBULO-INTERSTITIAL NEPHRITIS, NOT SPCF ACUTE OR CHRONIC (8) UTI (urinary tract infection) Assessment/Plan: treated with Zosyn and transitioned to Cipro. Code(s): N39.0 - URINARY TRACT INFECTION, SITE NOT SPECIFIED (9) Sinus tachycardia by electrocardiogram Assessment/Plan: resolved. Code(s): R00.0 - TACHYCARDIA, UNSPECIFIED (10) Morbid obesity Assessment/Plan: weight loss encouraged. followed by nutrition during hospital stay. Code(s): E66.01 - MORBID (SEVERE) OBESITY DUE TO EXCESS CALORIES (11) Prophylactic measure Code(s): Z29.9 - ENCOUNTER FOR PROPHYLACTIC MEASURES, UNSPECIFIED This patient is new to me today: No Emergency Visit: Yes ED Registration Date: 06/07/19 Care time: The patient presented to the Emergency Department on the above date and was hospitalized for further evaluation of their emergent condition. Critical Care patient: No - Discharge Referral Referred to [facility] Med P.C.: No
--- NOTE | 2019-06-12 11:47 | PN ---
Progress Note (short form) - Note Progress Note: Patient states she is feeling better. vss improved wbc, -wounds noted on feet onychomycosis b/l hallux and 5th toes. Will follow till dc.
== END 2019-06-12 13:56 | disposition home or self-care (01) | DRG 720 ==
LOC: JER 14:44 → JERBED 21:40 → J6S 06-08 03:50
PROVIDERS: ADMIT Internal Medicine; ATTEND Nurse Practitioner Family
DX: A41.9 Sepsis, unspecified organism (principal); N10 Acute pyelonephritis; E87.1 Hypo-osmolality and hyponatremia; E66.01 Morbid (severe) obesity due to excess calories; Z68.41 Body mass index [BMI] 40.0-44.9, adult; R11.2 Nausea with vomiting, unspecified; R00.1 Bradycardia, unspecified; N17.9 Acute kidney failure, unspecified; E11.9 Type 2 diabetes mellitus without complications; B35.1 Tinea unguium; K76.0 Fatty (change of) liver, not elsewhere classified
CPT/HCPCS: 36415; 71250-TC; 73630-TC-RT-FY; 74176-TC; 76705-TC; 80048; 80053; 80061; 81003; 82962; 83036; 83605; 83690; 83721; 83735; 83930; 83935; 84300; 84703; 85025; 87040; 87086; 87186; 93005; 93010; 93306-TC; 99284-25; J0131; J7030; Q9967

== ENCOUNTER 2019-12-03 20:51 | Emergency (ER) | payer OTHER ==
[2019-12-03 21:02] VITALS: BMI 103.3
--- NOTE | 2019-12-03 21:51 | PDOC ---
History of Present Illness - General Chief Complaint: Pain Stated Complaint: COUGHING/HEADACHE History Source: Patient Exam Limitations: No Limitations - History of Present Illness Initial Comments: 12/03/19 21:45 Patient is a 54 year old female pmhx DM insulin, here with multiple complaints including Right groin which started > 1 week ago, cough started 1 week ago, fever, decreased appetite. States 3 days ago had diarrhea and vomiting x 2 episodes. States she still feels nausea and only ate in the morning has not been able to eat the rest of the day. Endorsed weakness and fatigue, tightness with breathing. Denies dysuria, Chest pain. PMHX: as above PSOCHX: neg cig, neg etoh, neg drug ALl: NKDA Review of Systems: GENERAL/CONSTITUTIONAL: No fever or chills. No weakness. No weight change. HEAD, EYES, EARS, NOSE AND THROAT: No change in vision. No ear pain or discharge. No sore throat. CARDIOVASCULAR: No chest pain or shortness of breath. RESPIRATORY: (+) cough, wheezing, or hemoptysis. GASTROINTESTINAL: (+) nausea, vomiting, diarrhea (-) constipation. No rectal bleeding. GENITOURINARY: No dysuria, frequency, or change in urination. MUSCULOSKELETAL: No joint or muscle swelling or pain. No neck or back pain. SKIN AND BREASTS: No rash or easy bruising. NEUROLOGIC: No headache, vertigo, loss of consciousness, or loss of sensation. PSYCHIATRIC: No depression or anxiety. ENDOCRINE: No increased thirst. No abnormal weight change. HEMATOLOGIC/LYMPHATIC: No anemia, easy bleeding, or history of blood clots. ALLERGIC/IMMUNOLOGIC: No hives or skin allergy. No latex allergy. GENERAL: [The patient is awake, alert, and fully oriented, in mild acute distress with persistent cough.] HEAD: [Normal with no signs of trauma.] EYES: [Pupils equal, round and reactive to light, extraocular movements intact, sclera anicteric, conjunctiva clear.] ENT: [Ears normal, nares patent, oropharynx clear without exudates. Moist mucous membranes.] NECK: [Normal range of motion, supple without lymphadenopathy, JVD, or masses.] LUNGS: bilaterally mild wheezes, and no crackles.] HEART: [Tachycardic rate and rhythm, normal S1 and S2 without murmur, rub.] ABDOMEN: [Obese, soft, tenderness right groin, nontender McBurney's point, normoactive bowel sounds. No guarding, no rebound. No masses.] EXTREMITIES: [Normal range of motion, no edema. No clubbing or cyanosis. No cords, erythema, or tenderness.] NEUROLOGICAL: [Cranial nerves II through XII grossly intact. Normal speech, normal gait.] PSYCH: [Normal mood, normal affect.] SKIN: [Warm, Dry, normal turgor, no rashes or lesions noted.] Past History - Past Medical History Allergies/Adverse Reactions: Allergies Allergy/AdvReac Type Severity Reaction Status Date / Time No Known Allergies Allergy Verified 06/07/19 15:05 Home Medications: Ambulatory Orders Ciprofloxacin [Cipro -] 500 mg PO Q12H #20 tablet 06/12/19 Ciprofloxacin [Cipro -] 500 mg PO Q12H #20 tablet 06/12/19 Insulin Detemir [Levemir Flextouch] 18 unit SQ BID #5 insuln.pen 06/12/19 Insulin Detemir [Levemir Flextouch] 18 unit SQ BID #5 insuln.pen 06/12/19 Insulin Lispro [Humalog Kwikpen U-100] 100 unit SQ ACHS #5 insuln.pen 06/12/19 Insulin Lispro [Humalog Kwikpen U-200] 4 unit SQ ACHS #5 insuln.pen 06/12/19 Lancets [Glucocom Lancets] 1 each ACHS #100 each 06/12/19 Lancets/Blood Glucose Strips [Fora [id number] Strp-Lnct] 1 each ACHS # 100 combo..pkg 06/12/19 Miscellaneous Medical Supply [Glucometer Device] 1 each SQ ASDIR #1 kit Miscellaneous Medical Supply [Glucometer Device] 1 each SQ ASDIR #1 kit Miscellaneous Medical Supply [Glucometer Test Strips #100] 1 each SQ ASDIR #1 box 06/12/19 [place], Safety [Easy Touch Fliplock [place]] 1 each ACHS #100 dis.needle Pen Needle, Diabetic [1St Tier Unifine Pentips Plus] 1 each SQ ACHS #1 box 06/12 Albuterol Sulfate Inhaler - [Ventolin HFA Inhaler -] 2 inh PO Q4H #1 inh Azithromycin [Zithromax -] 250 mg PO DAILY #4 tablet 12/03/19 COPD: No - Psycho Social/Smoking Cessation Hx Smoking History: Never smoked *Physical Exam - Vital Signs Last Vital Signs Temp Pulse Resp BP Pulse Ox 100.6 F H 120 H 22 H 154/85 95 12/03/19 20:55 12/03/19 20:55 12/03/19 20:55 12/03/19 20:55 12/03/19 20:55 ED Treatment Course - LABORATORY CBC & Chemistry Diagram: 12/03/19 22:25 12/03/19 22:25 Medical Decision Making - Medical Decision Making 12/03/19 21:45 Patient is a 54 year old female pmhx DM insulin, here with multiple complaints including Right groin which started > 1 week ago, cough started 1 week ago, fever, decreased appetite. States 3 days ago had diarrhea and vomiting x 2 episodes. States she still feels nausea and only ate in the morning has not been able to eat the rest of the day. Endorsed weakness and fatigue, tightness with breathing. Denies dysuria, Chest pain. Symptoms consistent with a viral illness possibly influenza, pneumonia, bronchitis Chest x-ray Neb treatments, Tylenol, IV fluids. Patient feels improved after treatment Labs reviewed no acute findings. 12/03/19 23:56 Patient has haziness to the right heart border. We will give Zithromax 500 mg, Rocephin 1 g MDI for home Patient feels improved, still has cough and symptoms but tightness is resolved. I discussed the physical exam findings, ancillary test results and final diagnoses with the patient. I answered all of the patient's questions. The patient was satisfied with the care received and felt comfortable with the discharge plan and treatment plan. The Patient agrees to follow up with the primary care physician within 24-72 hours. Discharge - Discharge Information Problems reviewed: Yes Clinical Impression/Diagnosis: Pneumonia Qualifiers: Pneumonia type: due to unspecified organism Laterality: right Lung location: lower lobe of lung Qualified Code(s): J18.9 - Pneumonia, unspecified organism Condition: Stable Disposition: HOME - Additional Discharge Information Prescriptions: Albuterol Sulfate Inhaler - [Ventolin HFA Inhaler -] 2 inh PO Q4H #1 inh Azithromycin [Zithromax -] 250 mg PO DAILY #4 tablet - Follow up/Referral - Patient Discharge Instructions Patient Printed Discharge Instructions: DI for Pneumonia -- Adult Additional Instructions: Your Discharge Instructions: You must call primary care physician within 24 hours to arrange follow-up. Return to the Emergency Department with any new, persistent or worsening symptoms, for fever, chills, SOB, dizziness or any other concerning changes that may occur. - Post Discharge Activity
[2019-12-03] MEDS ORDERED: ALBUTEROL SO4 2.5/IPRATROPIUM 0.5 INH SOL 3 ML VIAL.NEB. NEB ONE ×2 (21:59→22:03)
[2019-12-03] MEDS ORDERED: SODIUM CHLORIDE 0.9% 500 ML INFUS.BAG IV ONE (21:59)
[2019-12-03] MEDS ORDERED: ACETAMINOPHEN 325 MG TABLET (FP) PO ONE (22:23)
[2019-12-03 22:32] LABS: BASO % 0.7 % (0-2.0); HEMATOCRIT 45.4 % (32.4-45.2); HEMOGLOBIN 15.2 GM/dL (10.7-15.3); LYMPH % 27.4 % (8-40); MCH 28.5 pg (25.7-33.7); MCHC 33.5 g/dl (32.0-36.0); MEAN CELL VOLUME 84.9 fl (80-96); MEAN PLT VOLUME 9.2 fl (7.5-11.1); MONO % 8.7 % (3.8-10.2); NEUT % 63.2 % (42.8-82.8); PLATELET COUNT 163 K/MM3 (134-434); RBC 5.35 M/mm3 (3.60-5.2); RDW 13.4 % (11.6-15.6); WHITE BLOOD COUNT 8.7 K/mm3 (4.0-10.0)
[2019-12-03] MEDS ORDERED: ACETAMINOPHEN 325 MG TABLET (FP) ONE (22:41)
[2019-12-03 22:59] LABS: EPI CELLS 8.2 /HPF (0-5/HPF); HYALINE CASTS 40 /lpf (0-8); PH,URINE 5.5 (5.0-8.0); URINE APPEARANCE CLOUDY; URINE BACTERIA 143.3 /hpf (NEGATIVE); URINE BILIRUBIN NEGATIVE (NEGATIVE); URINE COLOR YELLOW; URINE GLUCOSE (UA) NEGATIVE (NEGATIVE); URINE KETONE TRACE (NEGATIVE); URINE LEUK ESTERASE NEGATIVE (NEGATIVE); URINE NITRITE NEGATIVE (NEGATIVE); URINE PROTEIN 3+ (NEGATIVE); URINE RBC 1 /hpf (0-4); URINE UROBILINOGEN 0.2 mg/dL (0.2-1.0)
[2019-12-03 23:02] LABS: ALBUMIN 3.6 g/dl (3.4-5.0); BILIRUBIN,TOTAL 0.3 mg/dL (0.2-1); BLOOD UREA NITROGEN 22.1 mg/dL (7-18); CALCIUM 8.7 mg/dL (8.5-10.1); CREATININE 1.4 mg/dL (0.55-1.3); POTASSIUM 4.5 mmol/L (3.5-5.1); TOT PROT 8.2 g/dl (6.4-8.2)
[2019-12-03 23:55] LABS: URINE CRYSTALS FEW /hpf; URINE WBC 15.3 /hpf (0-5)
[2019-12-03] MEDS ORDERED: AZITHROMYCIN 250 MG TABLET PO ONE (23:56)
[2019-12-03] MEDS ORDERED: CEFTRIAXONE 1 GM in DEXTROSE 5%-WATER - 100 ML IVPB ONE (23:58)
[2019-12-04] MEDS ORDERED: AZITHROMYCIN 250 MG TABLET ONE (00:30)
[2019-12-04] MEDS ORDERED: CEFTRIAXONE 1 GM/50 ML BAG ONE (00:30)
[2019-12-04 03:36] VITALS: BP 107/70; PULSE 98; TEMP 99.8
== END 2019-12-04 01:25 | disposition home or self-care (01) ==
LOC: JER 20:51
PROC: 3E0F7GC Introduction of Other Therapeutic Substance into Respiratory Tract, Via Natural or Artificial Opening (ICD-10-PCS; principal; 2019-12-03)
PROC: 3E03329 Introduction of Other Anti-infective into Peripheral Vein, Percutaneous Approach (ICD-10-PCS; 2019-12-03)
DX: J18.9 Pneumonia, unspecified organism (principal); E11.9 Type 2 diabetes mellitus without complications; Z79.4 Long term (current) use of insulin
CPT/HCPCS: 36415; 71046-TC-FY; 80053; 81003; 85025; 87086; 87186; 87804; 94640; 96365; 99283-25

== ENCOUNTER 2023-03-15 03:59 | Day surgery (SDC) | payer OTHER ==
[2023-03-12 10:11] VITALS: BMI 43.0
[2023-03-15] MEDS ORDERED: MIDAZOLAM HCL 2 MG/2 ML SINGLE DOSE VIAL ONE (11:02)
[2023-03-15 14:11] VITALS: RESP 18; TEMP 97.9
[2023-03-15 14:12] VITALS: BP 129/72; PULSE 72
== END 2023-03-15 13:42 | disposition home or self-care (01) ==
LOC: JASU-SURG 03:59
PROVIDERS: ATTEND Urology
PROC: 0TF4XZZ Fragmentation in Left Kidney Pelvis, External Approach (ICD-10-PCS; principal; 2023-03-15 10:00)
DX: N20.0 Calculus of kidney (principal)
CPT/HCPCS: 82962

== ENCOUNTER 2023-12-06 04:32 | Day surgery (SDC) | payer OTHER ==
[2023-12-06] MEDS ORDERED: MIDAZOLAM HCL 2 MG/2 ML SINGLE DOSE VIAL ONE (14:52)
[2023-12-06 15:49] VITALS: RESP 18
[2023-12-06 17:24] VITALS: BP 136/80; PULSE 72; TEMP 96.9
== END 2023-12-06 17:05 | disposition home or self-care (01) ==
LOC: JASU-SURG 04:32
PROVIDERS: ATTEND Urology
PROC: 0TF3XZZ Fragmentation in Right Kidney Pelvis, External Approach (ICD-10-PCS; principal; 2023-12-06 13:30)
DX: N20.0 Calculus of kidney (principal)
CPT/HCPCS: 82962